=== PATIENT | male | born 1990 | race Hispanic/Latino ===

== ENCOUNTER 2017-06-28 12:14 | Emergency (ER) | payer SELFPAY ==
[2017-06-28 12:51] LABS: #Lymphocytes 1.3 thou/uL (1.20-3.40); #Monocytes 0.4 thou/uL (0.11-0.59); #Neutrophils 9.3 thou/uL (1.40-6.50); %Basophils 0.4 % (0.0-1.0); %Eosinophils 0.1 % (0.0-10.0); %Lymphocytes 11.5 % (21.0-51.0); %Monocytes 3.5 % (0.0-10.0); Hematocrit 50.2 % (42.0-52.0); Mean Platelet Volume 10.1 fL (7.4-10.4); Red Blood Cell (RBC) Count 5.25 mill/uL (4.70-6.10)
[2017-06-28 13:01] LABS: Anion Gap 11 mmol/L (-14-95); T. Carbon Dioxide 24.4 mmol/L (1.0-85.0); pH (Venous) 7.374 (7.35-7.45); vO2 Saturation-calc 90.7 % (0.0-100.0)
[2017-06-28 13:03] LABS: ALT (SGPT) 25 U/L (8-55); AST (SGOT) 16 U/L (5-34); Alkaline Phosphatase 147 U/L (40-150); Anion Gap 24 mmol/L (10-20); BUN (Urea Nitrogen) 15 mg/dL (8.9-20.6); Bilirubin, Total 0.5 mg/dL (0.2-1.2); Calc. Creatinine Clearance 0 mL/min (70-130); Calcium 10.3 mg/dL (7.8-10.44); Carbon Dioxide 19 mmol/L (22-29); Chloride 99 mmol/L (98-107); Estimated GFR-MDRD 83; Globulin 3.2 g/dL (2.4-3.5); Lipase 71 U/L (8-78)
[2017-06-28 13:07] LABS: Troponin I Less than 0.010 ng/mL (< 0.028)
[2017-06-28] MEDS ORDERED: Ondansetron HCl/PF 4 MG/2 ML Vial ONE (13:33)
== END 2017-06-28 14:18 | disposition home or self-care (01) ==
LOC: ERS 12:14
DX: E10.65 Type 1 diabetes mellitus with hyperglycemia (principal); F17.210 Nicotine dependence, cigarettes, uncomplicated
CPT/HCPCS: 36416; 80053; 82010; 82330; 82553; 82803; 83690; 84484; 85025; 96361; 96374; J2405

== ENCOUNTER 2018-01-11 22:54 | Inpatient (IN) | payer OTHER, SELFPAY ==
[2018-01-11] MEDS ORDERED: Ondansetron ODT 8 MG TAB ONE (23:18)
[2018-01-11 23:27] LABS: #Lymphocytes 0.8 thou/uL (1.20-3.40); #Monocytes 0.4 thou/uL (0.11-0.59); #Neutrophils 15.2 thou/uL (1.40-6.50); %Basophils 0.2 % (0.0-1.0); %Eosinophils 0.1 % (0.0-10.0); %Lymphocytes 4.8 % (21.0-51.0); %Monocytes 2.3 % (0.0-10.0); %Neutrophils 92.7 % (42.0-75.0); Hemoglobin 18.3 g/dL (14.0-18.0); Mean Corpuscular Hemoglobin 33.2 pg (27.0-31.0); Mean Corpuscular Volume 94.9 fl (80.0-94.0); Mean Platelet Volume 10.7 fL (7.4-10.4); Platelet Count 226 thou/uL (130-400); Red Blood Cell (RBC) Count 5.51 mill/uL (4.70-6.10); White Blood Cell (WBC) Count 16.4 thou/uL (4.8-10.8)
[2018-01-11 23:50] LABS: Magnesium 2.4 mg/dL (1.6-2.6); Phosphorus 4.9 mg/dL (2.3-4.7)
[2018-01-11 23:56] LABS: CKMB 2.7 ng/mL (0-6.6); Troponin I Less than 0.010 ng/mL (< 0.028)
[2018-01-11 23:59] LABS: ALT (SGPT) 29 U/L (8-55); AST (SGOT) 23 U/L (5-34); Albumin 5.1 g/dL (3.5-5.0); Alkaline Phosphatase 162 U/L (40-150); Anion Gap 33 mmol/L (10-20); BUN (Urea Nitrogen) 19 mg/dL (8.9-20.6); Bilirubin, Total 1.3 mg/dL (0.2-1.2); CK (CPK) 105 U/L (30-200); Calc. Creatinine Clearance 0 mL/min (70-130); Calcium 9.9 mg/dL (7.8-10.44); Carbon Dioxide 11 mmol/L (22-29); Chloride 95 mmol/L (98-107); Estimated GFR-MDRD 65; Globulin 3.2 g/dL (2.4-3.5); Glucose 463 mg/dL (70-105); Lipase 12 U/L (8-78); Potassium 5.7 mmol/L (3.5-5.1); Protein, Total 8.3 g/dL (6.0-8.3); Sodium 133 mmol/L (136-145)
[2018-01-12 00:10] LABS: Base Excess-Venous -16.4 mmol/L (0 (+/- 2.5)); Bicarbonate (HCO3v) 10.2 mmol/L (1.0-85.0); CO2 Tension (PvCO2) 27.8 mmHg (41.0-51.0); Calcium, Ionized 1.12 mmol/L (1.12-1.32); O2 Tension (PvO2) 64.1 mmHg (35.0-45.0); Potassium 6.6 mmol/L (3.4-4.7); T. Carbon Dioxide 11.1 mmol/L (1.0-85.0); pH (Venous) 7.173 (7.35-7.45); vO2 Saturation-calc 86.5 % (94-98)
[2018-01-12 01:30] LABS: Bilirubin Negative (Negative); Blood, Urine Negative (Negative); Clarity CLEAR (Clear); Glucose, Urine (Dipstick) >=1000 mg/dL (Negative); Leukocyte Negative (Negative); Nitrite Negative (Negative); Protein, Urine (Dipstick) Negative (Neg-Trace); Specific Gravity, Urine 1.027 (1.002-1.036); Urobilinogen 0.2 mg/dL (0.2-1.0)
[2018-01-12] MEDS ORDERED: NS 0.9% w/ 20 MEQ KCL 1,000 ML/1,000 ML BAG IV PRN ×2 (05:29)
[2018-01-12] MEDS ORDERED: Sodium Chloride 0.9% 1,000 ML IV PRN ×4 (05:29)
[2018-01-12] MEDS ORDERED: Dextrose 50% Abboject 50 ML SYRINGE SLOW IVP PRN ×2 (05:29→16:16)
[2018-01-12] MEDS ORDERED: Dextrose 5% in Water 1,000 ML IV PRN ×2 (05:29→16:16)
[2018-01-12] MEDS ORDERED: Dextrose 5 %-0.45 % NaCl 1,000 ML IV PRN (05:29)
[2018-01-12] MEDS ORDERED: ADD ELECTROLYTE REPLACEMENT SET TO PROFILE FS SCH (05:30)
[2018-01-12] MEDS ORDERED: Potassium Phosphate 9 MMOL in Sodium Chloride 0.9% 100 ML IVPB PRN (05:31)
[2018-01-12] MEDS ORDERED: Potassium Chloride 20 MEQ TAB PO PRN (05:31)
[2018-01-12] MEDS ORDERED: CCU ELECTROLYTE REPLACEMENT PROTOCOL FS PRN (05:31)
[2018-01-12] MEDS ORDERED: Magnesium Oxide 400 MG TAB PO PRN ×2 (05:31)
[2018-01-12] MEDS ORDERED: Potassium Phosphate 12 MMOL in Sodium Chloride 0.9% 250 ML 250 ML IV PRN (05:31)
[2018-01-12] MEDS ORDERED: Potassium Chloride 40 MEQ in Premix Bag 1 BAG IVPB PRN (05:31)
[2018-01-12] MEDS ORDERED: Potassium Phosphate 15 MMOL in Sodium Chloride 0.9% 250 ML 250 ML IV PRN (05:31)
[2018-01-12] MEDS ORDERED: Potassium Chloride 40 MEQ in Sodium Chloride 0.9% 250 ML 250 ML IVPB PRN (05:31)
[2018-01-12] MEDS ORDERED: Magnesium 2 GM/NS 0.9% 100 ML 2 GM in Premix Bag 1 BAG IVPB PRN (05:31)
[2018-01-12] MEDS ORDERED: Ondansetron HCl/PF 4 MG/2 ML Vial IVP PRN (06:04)
[2018-01-12] MEDS ORDERED: HYDROcodone/Acetaminophen 5/325 mg Tablet PO PRN (06:04)
[2018-01-12] MEDS ORDERED: Milk Of Magnesia 30 ML UDCUP PO PRN (06:04)
[2018-01-12] MEDS ORDERED: Zolpidem Tartrate 5 MG TAB PO PRN (06:04)
[2018-01-12] MEDS ORDERED: Senokot 8.6 MG TAB PO PRN (06:04)
[2018-01-12] MEDS ORDERED: Acetaminophen 325 MG TAB PO PRN (06:04)
[2018-01-12] MEDS ORDERED: Ondansetron ODT 4 MG TAB PO PRN (06:04)
[2018-01-12] MEDS ORDERED: Loperamide HCl 2 MG CAP PO PRN (06:04)
[2018-01-12] MEDS ORDERED: Mag-Al 1200 mg/1200 mg/30 ML UDCUP PO PRN (06:04)
[2018-01-12 06:11] VITALS: BMI 22.4
[2018-01-12 06:48] LABS: Calcium 8.2 mg/dL (7.8-10.44); Carbon Dioxide 8 mmol/L (22-29)
[2018-01-12 06:52] LABS: Anion Gap 25 mmol/L (10-20); Calc. Creatinine Clearance 84 mL/min (70-130); Chloride 110 mmol/L (98-107); Estimated GFR-MDRD 74; Potassium 4.8 mmol/L (3.5-5.1); Sodium 138 mmol/L (136-145)
[2018-01-12 06:58] LABS: Glucose 215 mg/dL (70-105)
[2018-01-12 07:03] LABS: BUN (Urea Nitrogen) 19 mg/dL (8.9-20.6)
--- NOTE | 2018-01-12 07:07 | HP ---
PRIMARY CARE PHYSICIAN: [facility] call admission. REASON FOR ADMISSION: Diabetes ketoacidosis. HISTORY OF PRESENT ILLNESS: A 27-year-old male who has type 1 diabetes on insulin, who was not taking insulin consistently who presented to emergency room with nausea, vomiting, generalized ab dominal pain, shortness of breath. All symptoms started about 2 hours at home before admission. The patient was trying to take his insulin yesterday, but it was not helping. He was gradually gotten w orse overnight and he has to come to the ER. In the emergency room, routine evaluation showed diabet ic ketoacidosis. The patient was admitted to [facility] for DKA treatment. Patient denies any fever or chills. He denies any cough. He denies any UTI symptoms. He denies any diarrhea, constipation, melena, hematochezia. PAST MEDICAL HISTORY: Diabetes type 1 insulin-dependent, history of polysubstance abuse, medication noncompliance. PAST SURGICAL HISTORY: Cataract surgery, laser treatment in both eyes. PAST PSYCHIATRIC HISTORY: Reviewed and negative. SOCIAL HISTORY: The patient drinks alcohol socially. He has history of cocaine and marijuana abuse. He smokes cigarettes. FAMILY HISTORY: No strong family history of premature coronary artery disease, stroke or cancer. Di abetes runs among several family members. His brother diagnosed with Prader-Willi syndrome. CURRENT HOME MEDICATIONS: Insulin 70/30 40 units subcu in the morning and variable dose during night time. REVIEW OF SYSTEMS: The following complete review of systems was negative, unless otherwise mentioned in the HPI or below: Constitutional: Weight loss or gain, ability to conduct usual activities. Skin: Rash, itching. Eyes: Double vision, pain. ENT/Mouth: Nose bleeding, neck stiffness, pain, tenderness. Cardiovascular: Palpitations, dyspnea on exertion, orthopnea. Respiratory: Shortness of breath, wheezing, cough, hemoptysis, fever or night sweats. Gastrointestinal: Poor appetite, abdominal pain, heartburn, nausea, vomiting, constipation, or diarr hea. Genitourinary: Urgency, frequency, dysuria, nocturia. Musculoskeletal: Pain, swelling. Neurologic/Psychiatric: Anxiety, depression. Allergy/Immunologic: Skin rash, bleeding tendency. Please see my HPI for pertinent positive and negative. All other review of systems reviewed and nega tive except as mentioned in the HPI. ALLERGIES: PENICILLIN. EMERGENCY ROOM COURSE: Patient was treated with insulin drip. The patient was given 3 liter IV flui d, morphine 4 mg, Bentyl 20 mg, Zofran 8 mg. PHYSICAL EXAMINATION: VITAL SIGNS: On arrival, blood pressure 147/83, pulse 82, respiratory rate 18, temperature 97.6, sat uration 95% on room air, weight 65.3 kilograms. GENERAL: The patient is currently alert, awake, no obvious acute distress. HEENT: Head: Normocephalic, atraumatic. Eyes: Pupils round, reactive to light. Extraocular muscl e intact. ENT: Oropharynx within normal limits. Dry mucous membrane, no oral lesion, no pharyngeal erythema, no exudate. NECK: Supple, no JVD, no thyromegaly, no carotid bruit, no jugular venous distention. LUNGS: Clear to auscultation without any rhonchi or rales. CARDIAC: S1, S2 regular. No murmur, no gallop, no rub. ABDOMEN: The patient does have diffuse, vague discomfort on deep palpation, but no peritoneal sign, no Akins sign, no suprapubic discomfort, no mass. BACK: Unremarkable, no CVA tenderness. EXTREMITIES: Upper extremity, passive movement of all joints are normal. Lower extremity, no edema. Good peripheral pulsation. SKIN: No skin rash. HEMATOLOGICAL: No lymphadenopathy. PSYCHIATRIC: Normal affect. NEUROLOGIC: Nonfocal examination. The patient moves all 4 limbs. Speech normal. SIGNIFICANT LABORATORY DATA AND IMAGING: EKG showing normal sinus rhythm within normal limits. Ches t x-ray based on my review, no acute cardiopulmonary process. CBC: WBC 16.4, hemoglobin 18.3, plate let 226. VBG: pH 7.17, CO2 27.8, O2 64.1, bicarbonate 10.2. BMP: Sodium 133, potassium 5.7, chlor home 95, carbon dioxide 11, anion gap 33, BUN 19, creatinine 1.32, glucose 463, calcium 9.9. LFT: T 23, ALT 29, alkaline phosphatase is 162, albumin is 5.1. CK 105. CK-MB 2.7, troponin I less than 0.010. Lipase 12. Phosphorus 4.9, magnesium 2.4. Urinalysis showing glucosuria, ketonuria. Serum ketones 9.19. ASSESSMENT AND PLAN: 1. Diabetes ketoacidosis, type 1. 2. Acute kidney injury. 3. Hyperkalemia and hyperglycemia. 4. Hyponatremia due to pseudohyponatremia. 5. Leukocytosis. 6. Hemoconcentration. PLAN: This patient is mainly admitted for diabetic ketoacidosis. We will manage him as a DKA protoc ol treatment while in hospital. We will replace electrolytes accordingly. We will manage insulin dr ip in the IMCU. Once the DKA resolves, then we will start his home dose of insulin therapy and adjus t insulin requirement. Deep venous thrombosis prophylaxis. Lovenox 30 mg subcutaneously daily. Gastrointestinal prophylaxis, Pepcid 20 mg IV daily. CODE STATUS: The patient is FULL CODE. Patient does not have any surrogate decision maker. Disposition plan based on clinical course. The patient will need hospitalization for at least 2-3 da ys.
[2018-01-12] MEDS: D5 1/2 NS w/20 mEq KCL 1,000 ML IV PRN ×2 (07:59→12:13)
[2018-01-12] MEDS ORDERED: Famotidine/PF 20 mg/2ml Vial SLOW IVP SCH (09:00)
[2018-01-12] MEDS ORDERED: Enoxaparin Sodium 30 MG/0.3 ML SYRINGE SC SCH (09:00)
[2018-01-12 10:03] LABS: Anion Gap 17 mmol/L (10-20); BUN (Urea Nitrogen) 16 mg/dL (8.9-20.6); Calc. Creatinine Clearance 103 mL/min (70-130); Calcium 7.9 mg/dL (7.8-10.44); Carbon Dioxide 13 mmol/L (22-29); Chloride 106 mmol/L (98-107); Estimated GFR-MDRD Greater than 90; Glucose 205 mg/dL (70-105); Potassium 4.9 mmol/L (3.5-5.1); Sodium 131 mmol/L (136-145)
--- NOTE | 2018-01-12 10:30 | RAD ---
PORTABLE CHEST: Date: 01/12/18 PROVIDED CLINICAL HISTORY: Nausea and vomiting. FINDINGS: Comparison with 03/16/16. Cardiac and mediastinal silhouette is within normal limits. Lungs appear clear. No pleural fluid or p neumothorax apparent. No evidence for pneumoperitoneum. IMPRESSION: No evidence for an acute cardiopulmonary process. POS: [facility]
[2018-01-12 15:36] LABS: Anion Gap 10 mmol/L (10-20); BUN (Urea Nitrogen) 11 mg/dL (8.9-20.6); Calc. Creatinine Clearance 100 mL/min (70-130); Calcium 8.2 mg/dL (7.8-10.44); Carbon Dioxide 18 mmol/L (22-29); Chloride 109 mmol/L (98-107); Estimated GFR-MDRD Greater than 90; Glucose 158 mg/dL (70-105); Potassium 4.1 mmol/L (3.5-5.1); Sodium 133 mmol/L (136-145)
[2018-01-12] MEDS ORDERED: Insulin NPH/Reg Insulin Hm 300 UNITS/3 ML VIAL SC SCH ×2 (16:15→21:00)
[2018-01-12] MEDS ORDERED: HumaLOG 300 UNITS/3 ML VIAL SC PRN (16:16)
--- NOTE | 2018-01-12 20:20 | PDOC.EVN ---
Event Note - Event Note Event Note: pt seen. Gap has closed. will discontinue insulin drip and start him on his home dose. will continue to monitor.
[2018-01-12] MEDS: Famotidine 20 MG TAB PO SCH (20:52)
[2018-01-12 22:23] LABS: Anion Gap 11 mmol/L (10-20); BUN (Urea Nitrogen) 13 mg/dL (8.9-20.6); Calc. Creatinine Clearance 85 mL/min (70-130); Calcium 8.4 mg/dL (7.8-10.44); Carbon Dioxide 18 mmol/L (22-29); Chloride 107 mmol/L (98-107); Estimated GFR-MDRD 75; Glucose 215 mg/dL (70-105); Potassium 3.9 mmol/L (3.5-5.1); Sodium 132 mmol/L (136-145)
[2018-01-13 03:54] VITALS: TEMP 98
[2018-01-13 04:40] LABS: Anion Gap 13 mmol/L (10-20); BUN (Urea Nitrogen) 10 mg/dL (8.9-20.6); Calc. Creatinine Clearance 88 mL/min (70-130); Calcium 8.8 mg/dL (7.8-10.44); Carbon Dioxide 24 mmol/L (22-29); Chloride 105 mmol/L (98-107); Estimated GFR-MDRD 78; Glucose 146 mg/dL (70-105); Magnesium 1.9 mg/dL (1.6-2.6); Potassium 3.6 mmol/L (3.5-5.1); Sodium 138 mmol/L (136-145)
[2018-01-13 07:30] VITALS: BP 116/62
[2018-01-13] MEDS: Famotidine 20 MG TAB PO SCH (08:02)
[2018-01-13] MEDS ORDERED: Insulin NPH/Reg Insulin Hm 300 UNITS/3 ML VIAL SC SCH (09:00)
[2018-01-13] MEDS ORDERED: Enoxaparin Sodium 40 MG/0.4 ML SYRINGE SC SCH (09:00)
--- NOTE | 2018-01-13 10:27 | PDOC.PN ---
- Subjective Encounter Start Date: 01/13/18 Encounter Start Time: 08:10 Subjective: feels good, eating breakfast -: is amb in room - Objective Resuscitation Status: Resuscitation Status FULL:Full Resuscitation MAR Reviewed: Yes Vital Signs & Weight: Vital Signs (12 hours) Temp Pulse Resp BP Pulse Ox 01/13/18 07:29 98.0 F 53 L 18 116/62 100 01/13/18 07:03 98.0 F 53 L 17 100 01/13/18 03:53 98.0 F 53 L 17 106/54 L 100 01/12/18 23:46 98.6 F 60 18 117/58 L 99 Weight Weight 138 lb 6.4 oz I&O: 01/12/18 01/13/18 01/14/18 06:59 06:59 06:59 Intake Total 1200 5208.7 360 Output Total 800 3950 Balance 400 1258.7 360 Result Diagrams: 01/11/18 23:10 01/13/18 03:21 Additional Labs: Accuchecks 01/13/18 01/13/18 01/13/18 05:47 01:34 00:18 POC Glucose 143 H 130 H 69 L 01/12/18 01/12/18 01/12/18 19:48 17:11 16:01 POC Glucose 307 H 104 131 H 01/12/18 01/12/18 01/12/18 15:07 14:03 13:02 POC Glucose 147 H 164 H 213 H 01/12/18 01/12/18 12:06 11:10 POC Glucose 248 H 175 H Phys Exam - Physical Examination HEENT: PERRLA, moist MMs Neck: no JVD, supple Respiratory: no wheezing, no rales Cardiovascular: RRR, no significant murmur Gastrointestinal: soft, non-tender, positive bowel sounds Musculoskeletal: no edema, pulses present Neurological: non-focal, moves all 4 limbs Psychiatric: normal affect, A&O x 3 Dx/Plan (1) DKA, type 1 Status: Resolved Qualifiers: Diabetes mellitus complication detail: without coma Qualified Code(s): E10.10 - Type 1 diabetes mellitus with ketoacidosis without coma (2) DM type 1 (diabetes mellitus, type 1) Status: Acute Qualifiers: Diabetes mellitus complication status: with unspecified complications Qualified Code(s): E10.8 - Type 1 diabetes mellitus with unspecified complications - Plan hemostable -: says he get insulin over the counter and has no problem buying them -: dc pt home -: 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
--- NOTE | 2018-01-13 21:37 | DIS ---
DATE OF ADMISSION: 01/12/2018. DATE OF DISCHARGE: 01/14/2108. DISCHARGE DISPOSITION: To home. PRIMARY DISCHARGE DIAGNOSES: Diabetic ketoacidosis with history of type 1 diabetes mellitus. PROCEDURES DONE DURING HOSPITALIZATION: Chest x-ray done showed no acute cardiopulmonary abnormaliti es. Had a white count of 16 with H&H of 18 and 52 on the day of admission. Initial venous blood gas showed a pH of 7.17. Discharge fingerstick glucoses between 69 and 143. Initial serum bicarbonate on admission was 11 with a serum glucose of 463. Beta hydroxybutyrate levels were 9.1. DISCHARGE MEDICATIONS: The patient to continue his NPH insulin at 20 units subcu twice daily. ALLERGIES: To PENICILLIN. DISCHARGE PLAN: The patient has been advised to check fingerstick glucose twice daily, record for a period of 10 days to follow up with his primary care physician in 1 week. BRIEF COURSE DURING HOSPITALIZATION: The patient initially got admitted on the with complaints of nausea, vomiting, and generalized abdominal pain and shortness of breath. He was apparently nonco mpliant with his insulin regimen. The patient was found to be in DKA and was admitted to [facility] on DKA protocol. The patient's gap is closed completely. He is tolerating oral solid diet. He is ambulat ing well. He is wanting to go home now. The patient has been counseled with regard to medication co mpliance and dietary compliance. The patient states he can get his insulin over the counter and does not need any prescriptions. He also mentions that he can afford to buy his insulin with no assistan ce needed. Please see a [id number] documentation for the day of discharge on [facility].
== END 2018-01-13 09:52 | disposition home or self-care (01) | DRG 638 ==
LOC: ERS 22:54 → IMCU/EMU 01-12 05:15
PROVIDERS: ADMIT Internal Medicine; ATTEND Internal Medicine
DX: E10.10 Type 1 diabetes mellitus with ketoacidosis without coma (principal); N17.9 Acute kidney failure, unspecified; E87.1 Hypo-osmolality and hyponatremia; Z91.14 Patient's other noncompliance with medication regimen; Z79.4 Long term (current) use of insulin; F17.210 Nicotine dependence, cigarettes, uncomplicated; E87.5 Hyperkalemia
CPT/HCPCS: 36415; 36416; 71045; 80048; 80053; 81003; 82010; 82330; 82435; 82550; 82553; 82803; 83690; 83735; 84100; 84132; 84295; 84484; 85014; 85025; 93005; 96361; 96365; 96372; 96374; J1650; J1815; J2270; J7050; S0028

== ENCOUNTER 2018-12-19 13:50 | Emergency (ER) | payer SELFPAY ==
[2018-12-19] MEDS ORDERED: Dexamethasone 4 MG TAB ONE (14:08)
== END 2018-12-19 14:20 | disposition home or self-care (01) ==
LOC: ERS 13:50
DX: J02.9 Acute pharyngitis, unspecified (principal); E10.9 Type 1 diabetes mellitus without complications; F17.210 Nicotine dependence, cigarettes, uncomplicated
CPT/HCPCS: 87081; 87430; 99283; J8540

== ENCOUNTER 2018-12-22 00:10 | Observation (INO) | payer SELFPAY ==
[2018-12-22] MEDS ORDERED: Dexamethasone 4 mg/ml Vial ONE (01:08)
[2018-12-22] MEDS ORDERED: Ketorolac Tromethamine 30 MG/ML VIAL ONE (01:08)
[2018-12-22 01:50] LABS: ALT (SGPT) 13 U/L (8-55); AST (SGOT) 12 U/L (5-34); Alkaline Phosphatase 133 U/L (40-150); Anion Gap 14 mmol/L (10-20); BUN (Urea Nitrogen) 12 mg/dL (8.9-20.6); Bilirubin, Total 0.3 mg/dL (0.2-1.2); Calc. Creatinine Clearance 0 mL/min (70-130); Calcium 9.4 mg/dL (7.8-10.44); Carbon Dioxide 28 mmol/L (22-29); Chloride 97 mmol/L (98-107); Estimated GFR-MDRD 90; Globulin 2.9 g/dL (2.4-3.5); Glucose 350 mg/dL (70-105); Potassium 3.8 mmol/L (3.5-5.1); Protein, Total 6.9 g/dL (6.0-8.3); Sodium 135 mmol/L (136-145)
[2018-12-22 02:02] LABS: Band 19 % (5-11); Hemoglobin 15.3 g/dL (14.0-18.0); Lymphocytes 19 % (21-51); MDiff Complete? YES; Mean Corpuscular Hemoglobin 32.7 pg (27.0-31.0); Mean Corpuscular Volume 93.5 fL (78.0-98.0); Monocytes 5 % (0-10); Neutrophil 57 % (42-75); Platelet Count 230 thou/uL (130-400); RBC Distribution Width 11.5 % (11.5-14.5); Red Blood Cell (RBC) Count 4.68 mill/uL (4.70-6.10)
[2018-12-22] MEDS ORDERED: cefTRIAXone\\ROCEPHIN 1 GM VIAL ONE (03:14)
[2018-12-22] MEDS ORDERED: Vancomycin HCl 1 GM in Premix Bag 1 BAG IVPB SCH (03:30)
[2018-12-22 04:20] VITALS: BMI 24.2
[2018-12-22] MEDS ORDERED: Ondansetron PF 4 MG/2 ML Vial IVP PRN (04:20)
[2018-12-22] MEDS ORDERED: HYDROcodone/Acetaminophen 5/325 mg Tablet PO PRN ×2 (04:20)
[2018-12-22] MEDS ORDERED: Ondansetron ODT 4 MG TAB SL PRN (04:20)
[2018-12-22] MEDS ORDERED: Acetaminophen 325 MG TAB PO PRN ×2 (04:20→10:50)
[2018-12-22] MEDS ORDERED: Lactated Ringer's 1,000 ML IV SCH (04:30)
[2018-12-22] MEDS: Morphine 4 MG/ML VIAL SLOW IVP PRN ×2 (06:24→10:40)
[2018-12-22] MEDS ORDERED: Lidocaine 1% (PF) 30 ML VIAL ONE (10:09)
[2018-12-22] MEDS ORDERED: Lidocaine 1% w/Epinephrine 1:100K 20 ML VIAL FS SCH (10:30)
[2018-12-22] MEDS ORDERED: Dextrose 50% Abboject 50 ML SYRINGE SLOW IVP PRN (10:50)
[2018-12-22] MEDS ORDERED: Dextrose 5% in Water 1,000 ML IV PRN (10:50)
[2018-12-22] MEDS ORDERED: Guaifenesin DM 100-10/5 ML UDCUP PO PRN (10:50)
[2018-12-22] MEDS ORDERED: Morphine 4 MG/ML VIAL SLOW IVP PRN (10:57)
--- NOTE | 2018-12-22 11:29 | CT ---
PRELIMINARY REPORT/[facility]/EMERGENCY AFTER HOURS PROCEDURE: EXAM: CT Neck With Contrast EXAM DATE/TIME: 12/22/2018 1:56 AM CLINICAL HISTORY: 28 years old, male; Throat pain; Patient HX: 28 year old male with history of sore throat over the la st few days. Was seen in er and diagnosed with pharyngitis, received zithromax RX and taking abx as p rescribed. Complains of continued pain. Patient denies any fever or chills. Decreased appetite d/t pa in. Took ibuprofen earlier this evening. Spitting during assessment, however, controlling airway. TECHNIQUE: Imaging protocol: Axial computed tomography images of the neck with intravenous contrast. COMPARISON: No relevant prior studies available. FINDINGS: Nasopharynx: Normal. Oropharynx: There is a rim enhancing 2 x 1 x 1 cm RIGHT peritonsillar abscess at the RIGHT lingual to nsils.There is also fluid tracking within the soft tissues at the base of tongue /vallecula posterior to the hyoid bone with collection measuring 1.7 x 1 x 0.9 cm consistent with abscess and ph legmonous change. Hypopharynx: Normal. Larynx: See oropharynx finding. Normal epiglottis. Retropharyngeal space: Normal. Submandibular/Parotid glands: Normal. Glands are normal in size. Thyroid: Normal. No enlarged or calcified nodules. Lymph nodes: There are large RIGHT level II lymph nodes measuring 1.6 cm presumably reactive. Trachea: Visualized trachea is unremarkable. Lungs: Normal as visualized. Vasculature: No acute findings. Bones/joints: Normal. No acute fracture. Soft tissues: Normal. IMPRESSION: 1. RIGHT peritonsillar/oropharyngeal abscesses as above. 2. There are large RIGHT level II lymph nodes measuring 1.6 cm presumably reactive. Followup as clini myesha warranted. Thank you for allowing us to participate in the care of your patient. Dictated and Authenticated by: Hernan Urbano MD 12/22/2018 2:31 AM Central Time ([place] & [place]) FINAL REPORT CT NECK WITH IV CONTRAST: I agree with the preliminary report given by Dr. Hernan Urbano of [facility]. POS: [facility]
--- NOTE | 2018-12-22 11:37 | HP ---
REASON FOR ADMISSION: Throat pain, possible peritonsillar abscess on the right. HISTORY OF PRESENTING ILLNESS: The patient gives history of having throat pain, which started on Saturday. He had come to emergency room and was prescribed Zithromax, total of 6 pills, and was also given dexamethasone 10 mg p.o. x1 in the ER on the . The patient took nearly three pills of Zithromax, but his throat pain was not resolving. In fact, it got worse and he had trouble swallowing. He started to have cold sweats with right facial and right neck pain. Finally, he made it to the emergency room again. He has had a CT soft tissue neck with contrast done. The results of which are pending at present. This morning, he has no complaints of trouble swallowing around 10 a.m. He has no complaints of chest pain or palpitation. His Strep swab culture is negative, which was taken on the . PAST MEDICAL AND SURGICAL HISTORY: Diabetes mellitus, type 1; diabetic retinopathy with prior laser surgery; cataract surgery. CURRENT MEDICATIONS: He takes Humulin 70/30 40 units subcu in the morning and depending on his glucose levels, he will take another 10 or 15 units at night. ALLERGIES: ALLERGIC TO PENICILLIN. PERSONAL HISTORY: He smokes tobacco occasionally and uses marijuana. Social alcohol usage. He last used cocaine 8 months back. He lives with his mother and brother. FAMILY HISTORY: Mother has severe osteoarthritis. Father is healthy. CODE STATUS: Full. Power of head orthopedic team physician is his sister, Ms. Tracy. REVIEW OF SYSTEMS: CONSTITUTIONAL: Negative for weight loss or gain, ability to conduct usual activities. SKIN: Negative for rash, itching. EYES: Negative for double vision, pain. ENT/MOUTH: Negative for nose bleeding, neck stiffness, pain, tenderness. CARDIOVASCULAR: Negative for palpitations, dyspnea on exertion, orthopnea. RESPIRATORY: Negative for shortness of breath, wheezing, cough, hemoptysis, fever or night sweats. GASTROINTESTINAL: Negative for poor appetite, abdominal pain, heartburn, nausea , vomiting, constipation, or diarrhea. GENITOURINARY: Negative for urgency, frequency, dysuria, nocturia. MUSCULOSKELETAL: Negative for pain, swelling. NEUROLOGIC/PSYCHIATRIC: Negative for anxiety, depression. ALLERGY/IMMUNOLOGIC: Negative for skin rash, bleeding tendency. PHYSICAL EXAMINATION: GENERAL: The patient is a 28-year-old male, who is currently in mild pain in the right side of his throat. VITAL SIGNS: Blood pressure 140/96, pulse 90 per minute, respiratory rate 16 per minute, temperature 98.5 degrees Fahrenheit, saturating 96% on room air. NECK: There is right submandibular lymphadenopathy and there is jugulodigastric node palpable on the right with tenderness. HEENT: Oral cavity, the patient is unable to open his mouth wide. Posterior pharynx cannot be examined due to excruciating pain and with suspected diagnosis of peritonsillar abscess, no attempts were made to depress his tongue to see forcefully. CARDIOVASCULAR: S1 and S2 heard, regular rhythm. RESPIRATORY: Air entry 1+ bilateral. No rales or rhonchi. ABDOMEN: Soft. Bowel sounds heard. No tenderness, rigidity, or guarding. EXTREMITIES: No peripheral edema or calf tenderness. VASCULAR SYSTEM: Peripheral pulses 2+ bilateral. No ischemic ulcerations or gangrene. CENTRAL NERVOUS SYSTEM: No gross focal deficits noted. The patient is alert, awake, and oriented well. PSYCHIATRIC: The patient's mood is euthymic. No hallucinations or delusions. LABORATORY DATA: White count of 14, hemoglobin and hematocrit of 15 and 43, platelet count is 230, with 57% neutrophils, 19% bands. Electrolytes stable. BUN 12, creatinine 0.9. Serum glucose was 350 on arrival, repeat fingerstick was 249. Liver enzymes within normal limits. Albumin is 4.0. Group A Strep screen done in the ER is negative. Soft-tissue CT neck, results are pending at present. CLINICAL IMPRESSION AND PLAN: The patient will be under observation on medical floor for suspected right peritonsillar abscess. Official CT scan is pending. Dr. Thuan Tabares, ENT surgeon has already been consulted from ER. He is kept n.p.o. for possible procedure this morning. He has received a dose of vancomycin in view of his allergy to penicillin in the ER. We will continue him on clindamycin 600 mg IV q.8 hourly. Normal saline at 70 mL per hour. He will be on moderate Humalog coverage until he is able to take oral intake. Morphine p.r.n. for pain. We will continue to closely monitor him on medical floor. Job ID: [id number] [facility]
[2018-12-22] MEDS: Sodium Chloride 0.9% 1,000 ML IV SCH (12:12)
--- NOTE | 2018-12-22 12:31 | HP ---
BRIEF HISTORY: A 28-year-old gentleman with poorly-controlled diabetes, has had a 3- to 4-day history of sore throat. He has only had 1 severe episode of tonsillitis in the past. He was admitted to the emergency room. CT scan showed an intratonsillar abscess on his right tonsil with some mild extension into the right lingual tonsillar area. Otherwise, his voice has been clear. He has been feeling much better since he has received IV antibiotics, started at midnight. PAST MEDICAL HISTORY: Type 1 diabetes. PAST SURGICAL HISTORY: No history of head and neck surgery. REVIEW OF SYSTEMS: CONSTITUTIONAL: Low-grade fevers, chills, body aches and sore throat in the past 3 to 4 days. HEME: No history of bleeding disorders. CARDIOVASCULAR: No chest pain or orthopnea. PULMONARY: No cough or wheeze. PHYSICAL EXAMINATION: GENERAL: The patient is resting fairly comfortably in bed. He shows no signs of trismus. HEENT: His tongue is soft and fully mobile. Voice is clear. NECK: lymphadenopathy bilateral level 2. More tender on the right than the left. Right tonsil is red with scant exudate present. There is no associated edema. Uvula is in midline. Base of tongue is soft, nontender. PROCEDURE: A 0.5 mL of 1% lidocaine with 1:100,000 epinephrine was injected into the right anterior tonsillar pillar. Following this, 18-gauge needle was used to drain approximately 1.5 to 2 mL of purulence from this area. ASSESSMENT: Right intratonsillar/peritonsillar abscess, status post incision and drainage to the bedside. Recommend continue IV antibiotics and aggressive blood sugar control. He will follow up with us as an outpatient. Job ID: [id number]
[2018-12-22] MEDS: Clindamycin/D5W 600 MG in Premix Bag 1 BAG IVPB SCH ×2 (14:58→19:39)
[2018-12-22] MEDS ORDERED: ISOVUE-370 76%-LOCM 1 ML ONE (16:08)
[2018-12-22] MEDS: Famotidine/PF 20 mg/2ml Vial SLOW IVP SCH (19:37)
[2018-12-22] MEDS: Ibuprofen 100 MG/5 ML UDCUP PO SCH ×2 (19:37→19:53)
[2018-12-22] MEDS: HumaLOG 300 UNITS/3 ML VIAL SC PRN (20:53)
[2018-12-22] MEDS: Ketorolac Tromethamine 30 MG/ML VIAL IVP PRN (20:55)
[2018-12-23] MEDS: Ketorolac Tromethamine 30 MG/ML VIAL IVP PRN ×4 (03:13→21:31)
[2018-12-23] MEDS: Sodium Chloride 0.9% 1,000 ML IV SCH ×2 (03:15→14:08)
[2018-12-23] MEDS: Clindamycin/D5W 600 MG in Premix Bag 1 BAG IVPB SCH ×3 (05:10→20:20)
[2018-12-23 06:20] LABS: Anion Gap 26 mmol/L (10-20); BUN (Urea Nitrogen) 17 mg/dL (8.9-20.6); Calc. Creatinine Clearance 91 mL/min (70-130); Calcium 9.4 mg/dL (7.8-10.44); Carbon Dioxide 13 mmol/L (22-29); Chloride 100 mmol/L (98-107); Estimated GFR-MDRD 75; Glucose 316 mg/dL (70-105); Potassium 4.7 mmol/L (3.5-5.1); Sodium 134 mmol/L (136-145)
[2018-12-23] MEDS: HumaLOG 300 UNITS/3 ML VIAL SC PRN ×4 (06:24→22:01)
[2018-12-23 06:27] LABS: Band 7 % (5-11); Hemoglobin 14.4 g/dL (14.0-18.0); Lymphocytes 12 % (21-51); MDiff Complete? YES; Mean Corpuscular HGB CONC 32.4 g/dL (32.0-36.0); Mean Corpuscular Hemoglobin 31.2 pg (27.0-31.0); Mean Corpuscular Volume 96.1 fL (78.0-98.0); Mean Platelet Volume 10.9 fL (7.4-10.4); Monocytes 8 % (0-10); Neutrophil 73 % (42-75); Platelet Count 252 thou/uL (130-400); RBC Distribution Width 11.6 % (11.5-14.5); Red Blood Cell (RBC) Count 4.61 mill/uL (4.70-6.10)
[2018-12-23] MEDS: Famotidine/PF 20 mg/2ml Vial SLOW IVP SCH ×2 (07:35→20:20)
[2018-12-23 08:04] LABS: Hemoglobin A1c 10.4 % (4.0-6.0)
--- NOTE | 2018-12-23 09:01 | PDOC.PN ---
- Subjective Encounter Start Date: 12/23/18 Encounter Start Time: 08:58 Patient lying in bed, he reports pain better today. He wants to try and eat something. His A1c is found to be 10.4, he states he was on lantus, but could not afford it. He denies chest pain, shortness of breath or trouble swallowing. - Objective Resuscitation Status - Order Detail: 12/22/18 10:47 Resuscitation Status Routine Resuscitation Status: FULL: Full Resuscitation MAR Reviewed: Yes Vital Signs & Weight: Vital Signs (12 hours) Temp Pulse Resp BP Pulse Ox 12/23/18 08:00 97.4 F L 69 16 111/56 L 96 12/23/18 03:20 98.2 F 73 16 138/73 96 12/22/18 23:30 99.1 F 67 20 112/58 L 96 Weight Weight 150 lb 1.6 oz I&O: 12/22/18 12/23/18 12/24/18 06:59 06:59 06:59 Intake Total 1790 Output Total 2250 Balance -460 Result Diagrams: 12/23/18 04:42 12/23/18 04:42 Additional Labs: Accuchecks 12/22/18 12/22/18 20:38 16:48 POC Glucose 327 H 242 H Radiology Reviewed by me: Yes Phys Exam - Physical Examination Constitutional: NAD HEENT: moist MMs Pharnx edema and swelling noted Neck: full ROM Respiratory: no wheezing, no rales, clear to auscultation bilateral Cardiovascular: RRR, no significant murmur Gastrointestinal: soft, no distention, positive bowel sounds Musculoskeletal: no edema, pulses present Neurological: non-focal, moves all 4 limbs Psychiatric: normal affect, A&O x 3 Skin: no rash, cap refill <2 seconds Dx/Plan (1) Peritonsillar abscess Code(s): J36 - PERITONSILLAR ABSCESS Status: Acute (2) Diabetes type I Status: Acute - Plan cont current plan of care, continue antibiotics * Continue IV clinda * Slowly advance diet, start with liquids for now * Add Levemir 10units in am and continue moderate sliding scale * A1C was found to be 10.4, continue accucheks * Once patient is able to tolerate oral intake will likely transition to oral antibiotics and consider discharge with close outpatient follow up
[2018-12-23] MEDS: Insulin Glargine 10 UNITS in Pre-Filled Syringe 1 EACH SC SCH (09:37)
[2018-12-24] MEDS: Ketorolac Tromethamine 30 MG/ML VIAL IVP PRN ×2 (04:58→11:45)
[2018-12-24] MEDS: Sodium Chloride 0.9% 1,000 ML IV SCH (05:00)
[2018-12-24] MEDS: Clindamycin/D5W 600 MG in Premix Bag 1 BAG IVPB SCH (05:01)
[2018-12-24] MEDS: Insulin Glargine 10 UNITS in Pre-Filled Syringe 1 EACH SC SCH (09:44)
[2018-12-24] MEDS: Famotidine/PF 20 mg/2ml Vial SLOW IVP SCH (09:44)
[2018-12-24] MEDS: HumaLOG 300 UNITS/3 ML VIAL SC PRN (11:50)
[2018-12-24] MEDS ORDERED: Clindamycin 150 MG CAP PO SCH (12:00)
[2018-12-24 12:30] LABS: Hemoglobin 15.2 g/dL (14.0-18.0); Mean Corpuscular HGB CONC 34.2 g/dL (32.0-36.0); Mean Corpuscular Hemoglobin 32.3 pg (27.0-31.0); Mean Corpuscular Volume 94.6 fL (78.0-98.0); Mean Platelet Volume 10.3 fL (7.4-10.4); Platelet Count 263 thou/uL (130-400); RBC Distribution Width 11.5 % (11.5-14.5); Red Blood Cell (RBC) Count 4.71 mill/uL (4.70-6.10); White Blood Cell (WBC) Count 17.3 thou/uL (4.8-10.8)
[2018-12-24 12:47] LABS: Anion Gap 24 mmol/L (10-20); BUN (Urea Nitrogen) 12 mg/dL (8.9-20.6); Calc. Creatinine Clearance 85 mL/min (70-130); Calcium 9.4 mg/dL (7.8-10.44); Carbon Dioxide 15 mmol/L (22-29); Chloride 98 mmol/L (98-107); Estimated GFR-MDRD 69; Glucose 414 mg/dL (70-105); Potassium 4.3 mmol/L (3.5-5.1); Sodium 133 mmol/L (136-145)
[2018-12-24 12:50] LABS: Band 7 % (5-11); Lymphocytes 8 % (21-51); MDiff Complete? YES; Metamyelocyte 1 % (0-0); Monocytes 4 % (0-10); Neutrophil 79 % (42-75); RBC Morphology Normal; Reactive Lymphocytes 1 % (0-10)
[2018-12-24] MEDS ORDERED: HumaLOG 300 UNITS/3 ML VIAL SC PRN (13:17)
[2018-12-24 16:12] VITALS: BP 138/78; TEMP 98.8
== END 2018-12-24 16:47 | disposition home or self-care (01) ==
LOC: ERS 00:10 → 2SW 03:25
PROVIDERS: ADMIT Hospitalist; ATTEND Hospitalist
DX: J36 Peritonsillar abscess (principal); E10.9 Type 1 diabetes mellitus without complications; F12.10 Cannabis abuse, uncomplicated; F17.210 Nicotine dependence, cigarettes, uncomplicated; Z88.0 Allergy status to penicillin; Z98.890 Other specified postprocedural states
CPT/HCPCS: 36415; 36416; 42999; 70491; 80048; 80053; 83036; 83605; 85025; 87081; 87430; 96361; 96365; 96366; 96367; 96372; 96375; 96376; G0378; J0696; J1100; J1825; J1885; J2001; J2270; J3370; J3490; Q9966; S0028

== ENCOUNTER 2019-09-19 13:23 | Inpatient (IN) | payer SELFPAY ==
[2019-09-19] MEDS ORDERED: Ondansetron ODT 4 MG TAB ONE (13:28)
[2019-09-19 15:29] LABS: #Lymphocytes 0.9 thou/uL (1.20-3.40); #Monocytes 0.4 thou/uL (0.11-0.59); #Neutrophils 9.7 thou/uL (1.40-6.50); %Basophils 0.3 % (0.0-1.0); %Eosinophils 0.2 % (0.0-10.0); %Lymphocytes 7.9 % (21.0-51.0); %Monocytes 3.6 % (0.0-10.0); %Neutrophils 88.1 % (42.0-75.0); Hemoglobin 17.7 g/dL (14.0-18.0); Mean Corpuscular HGB CONC 35.4 g/dL (32.0-36.0); Mean Corpuscular Hemoglobin 32.9 pg (27.0-31.0); Mean Platelet Volume 10.7 fL (7.4-10.4); Platelet Count 235 thou/uL (130-400); RBC Distribution Width 11.8 % (11.5-14.5); Red Blood Cell (RBC) Count 5.38 mill/uL (4.70-6.10)
[2019-09-19 15:52] LABS: ALT (SGPT) 26 U/L (8-55); AST (SGOT) 26 U/L (5-34); Albumin 5.2 g/dL (3.5-5.0); Alkaline Phosphatase 149 U/L (40-110); Anion Gap 23 mmol/L (10-20); BUN (Urea Nitrogen) 16 mg/dL (8.9-20.6); Bilirubin, Total 0.9 mg/dL (0.2-1.2); Calc. Creatinine Clearance 0 mL/min (70-130); Calcium 10.1 mg/dL (7.8-10.44); Carbon Dioxide 23 mmol/L (22-29); Chloride 95 mmol/L (98-107); Estimated GFR-MDRD 78; Globulin 2.6 g/dL (2.4-3.5); Glucose 275 mg/dL (70-105); Lipase 21 U/L (8-78); Potassium 5.2 mmol/L (3.5-5.1); Protein, Total 7.8 g/dL (6.0-8.3); Sodium 136 mmol/L (136-145)
--- NOTE | 2019-09-19 16:59 | RAD ---
EXAM: Chest one view: HISTORY: Hyperglycemia COMPARISON: 03/14/2018 FINDINGS: Heart size: Within normal limits. Lungs: Clear of acute process. No evidence for confluent pneumonia, pleural effusion, acute edema, or pneumothorax, or other signifi cant acute process. IMPRESSION: No significant acute intrathoracic disease. Stable exam.
[2019-09-19 17:09] LABS: Base Excess-Venous -2.9 mmol/L (-2.0 to 3.0); CO2 Tension (PvCO2) 53.4 mmHg (40.0-50.0); Calcium, Ionized 1.15 mmol/L (See Comments:); Chloride 99 mmol/L (98-107); Hemoglobin - Calc 17.3 g/dL (14.0-18.0); Potassium 4.2 mmol/L (3.5-5.1); Sodium 135 mmol/L (138-145); T. Carbon Dioxide 26.6 mmol/L (22.0-28.0); vO2 Saturation-calc 54.9 % (60.0-85.0)
[2019-09-19 17:13] LABS: Bilirubin Negative (Negative); Blood, Urine Negative (Negative); Clarity Clear (Clear); Glucose, Urine (Dipstick) Greater than 1000 mg/dL (Negative); Leukocyte Negative Leu/uL (Negative); Nitrite Negative (Negative); Protein, Urine (Dipstick) 20 mg/dL (Neg-Trace); Urobilinogen Normal mg/dL (Less than 2)
[2019-09-19] MEDS ORDERED: HUMULIN R 100 UNITS in Sodium Chloride 0.9% 100 ML IVPB SCH ×2 (17:15→21:06)
[2019-09-19] MEDS ORDERED: Dextrose 50% Abboject 50 ML SYRINGE ONE (20:11)
[2019-09-19 20:21] LABS: Potassium 3.8 mmol/L (3.5-5.1)
[2019-09-19] MEDS ORDERED: Famotidine/PF 20 mg/2ml Vial SLOW IVP SCH (21:00)
[2019-09-19] MEDS ORDERED: Ondansetron ODT 4 MG TAB SL PRN (21:06)
[2019-09-19] MEDS ORDERED: Acetaminophen 325 MG TAB PO PRN ×2 (21:06)
[2019-09-19] MEDS ORDERED: NS 0.9% w/ 20 MEQ KCL 1,000 ML IV PRN ×2 (21:06)
[2019-09-19] MEDS ORDERED: Dextrose 5 %-0.45 % NaCl 1,000 ML IV PRN ×2 (21:06→21:07)
[2019-09-19] MEDS ORDERED: CCU Electrolyte Replacement 1 EACH IVPB ONE (21:06)
[2019-09-19] MEDS ORDERED: Sodium Chloride 0.9% 1,000 ML IV PRN ×8 (21:06→21:07)
[2019-09-19] MEDS ORDERED: Ondansetron ODT 4 MG TAB PO PRN (21:06)
[2019-09-19] MEDS ORDERED: Ondansetron PF 4 MG/2 ML Vial IVP PRN ×2 (21:06)
[2019-09-19] MEDS ORDERED: Dextrose 5% in Water 1,000 ML IV PRN (21:07)
[2019-09-19] MEDS ORDERED: D5 1/2 NS w/20 mEq KCL 1,000 ML IV PRN (21:07)
[2019-09-19] MEDS ORDERED: Dextrose 50% Abboject 50 ML SYRINGE SLOW IVP PRN (21:07)
[2019-09-19] MEDS ORDERED: NS 0.9% w/ 20 MEQ KCL 1,000 ML/1,000 ML BAG IV PRN ×2 (21:07)
[2019-09-19] MEDS ORDERED: Potassium Phosphate 12 MMOL in Sodium Chloride 0.9% 250 ML 250 ML IV PRN ×2 (21:08→21:12)
[2019-09-19] MEDS ORDERED: Potassium Chloride 40 MEQ in Sodium Chloride 0.9% 250 ML 250 ML IVPB PRN ×2 (21:08→21:12)
[2019-09-19] MEDS ORDERED: Magnesium 2 GM/50 ML 2 GM in Premix Bag 1 BAG IVPB PRN ×2 (21:08→21:12)
[2019-09-19] MEDS ORDERED: Potassium Phosphate 9 MMOL in Sodium Chloride 0.9% 100 ML IVPB PRN ×2 (21:08→21:12)
[2019-09-19] MEDS ORDERED: Potassium Chloride 40 MEQ in Premix Bag 1 BAG IVPB PRN ×2 (21:08→21:12)
[2019-09-19] MEDS ORDERED: PHOS-NAK 1 PKT PACK PO PRN ×4 (21:08→21:12)
[2019-09-19] MEDS ORDERED: Magnesium Oxide 400 MG TAB PO PRN ×4 (21:08→21:12)
[2019-09-19] MEDS ORDERED: CCU ELECTROLYTE REPLACEMENT PROTOCOL FS PRN ×2 (21:08→21:12)
[2019-09-19] MEDS ORDERED: Potassium Phosphate 15 MMOL in Sodium Chloride 0.9% 250 ML 250 ML IV PRN ×2 (21:08→21:12)
[2019-09-19] MEDS ORDERED: Potassium Chloride 20 MEQ TAB PO PRN ×2 (21:08→21:12)
[2019-09-19 21:12] VITALS: BMI 22.3
[2019-09-19] MEDS ORDERED: ADD ELECTROLYTE REPLACEMENT SET TO PROFILE FS SCH (21:15)
[2019-09-19] MEDS: D5 1/2 NS w/20 mEq KCL 1,000 ML IV PRN (21:24)
[2019-09-19 21:51] LABS: Anion Gap 15 mmol/L (10-20); BUN (Urea Nitrogen) 14 mg/dL (8.9-20.6); Calc. Creatinine Clearance 104 mL/min (70-130); Carbon Dioxide 28 mmol/L (22-29); Chloride 98 mmol/L (98-107); Estimated GFR-MDRD Greater than 90; Glucose 196 mg/dL (70-105); Potassium 3.7 mmol/L (3.5-5.1); Sodium 137 mmol/L (136-145)
--- NOTE | 2019-09-20 00:04 | HP ---
PRIMARY CARE PHYSICIAN: At the [facility]. CHIEF COMPLAINT: Nausea and vomiting. HISTORY OF PRESENT ILLNESS: Mr. Colbert is a pleasant 29-year-old gentleman, who has a history of diabetes mellitus type 1. He says that after breakfast, he started having problems with nausea and vomiting. He says he vomited about four times, yellow looking vomitus. He says prior to that, he admits to drinking about a 12-pack of beer. He denies any hematemesis. He denies having any symptoms such as cough or cold. No sore throat. No fevers. No chills. He thought it might be that he was hung over, so he thought the symptoms would go away. However, when his symptoms did not improve, he came to the ER for evaluation. There, he was found to have an elevated blood glucose. He also had an elevated anion gap and he is being admitted for DKA. Otherwise, the patient has no other complaints. Currently, he is feeling much better and is actually starting to ask when he can eat. REVIEW OF SYSTEMS: All systems were reviewed and are negative except for that mentioned in the history of present illness. PAST MEDICAL HISTORY: Significant for diabetes mellitus type 1. PAST SURGICAL HISTORY: He has had a cataract removed when he was 10-year-old. ALLERGIES: TO PENICILLIN. SOCIAL HISTORY: He lives at home with his mother. He smokes occasionally. He admits to smoking marijuana as well and drinks as well occasionally. FAMILY HISTORY: Significant for diabetes on both sides of his family. CURRENT MEDICATIONS: Include insulin 70/30 of 20 units in the morning and 20 in the evening. PHYSICAL EXAMINATION: GENERAL: He is alert and oriented. He appears to be in no acute distress. He is well developed and well nourished. VITAL SIGNS: The patient's blood pressure was 139/88, heart rate 96, respiratory rate of 20, temperature is 97.9. HEENT: Pupils are equal, round, and reactive. Extraocular muscles are intact. Sclerae anicteric. Throat, there is no erythema. No exudates. NECK: No adenopathy. No bruits. LUNGS: There is no wheezing, no rales, no rhonchi. CARDIOVASCULAR: He has a normal S1, S2. I did not appreciate an S3 or S4. No murmurs, clicks, or rubs. ABDOMEN: Soft. He has some mild epigastric tenderness. There is no rebound, no guarding, no organomegaly. EXTREMITIES: There is no clubbing or cyanosis. No edema. No joint effusions. SKIN AND INTEGUMENT: There are no skin changes. No rash. No skin breakdown. LABORATORY RESULTS: White blood cell count is 11, hemoglobin 17.7, hematocrit is 50, platelet count is 235. His sodium is 136, potassium 5.2, chloride is 95, CO2 is 23, BUN of 16, creatinine 1.1, glucose is 275. Urinalysis is significant for glucose, as well as ketones and beta hydroxybutyrate is 5.63. The patient had a chest x-ray, which was negative for any airspace disease. ASSESSMENT: This is a 29-year-old gentleman, who presents to the emergency room with nausea, vomiting, elevated blood glucose with elevated anion gap. He will be admitted to the [facility] for diabetic ketoacidosis and started on insulin drip, as well as IV fluids. He will likely clear the diabetic ketoacidosis fairly quickly and I suspect even before the night is over, he can be transitioned over to subcu insulin or in the morning. He will need to be counseled on diabetes management, as well as the risks involved with noncompliance with diet as well as monitoring as he says he admits that he does not use a glucometer. Hopefully, transition back to the outpatient setting. Job ID: [id number]
[2019-09-20 01:22] LABS: Anion Gap 12 mmol/L (10-20); BUN (Urea Nitrogen) 14 mg/dL (8.9-20.6); Calc. Creatinine Clearance 116 mL/min (70-130); Calcium 8.6 mg/dL (7.8-10.44); Carbon Dioxide 27 mmol/L (22-29); Chloride 101 mmol/L (98-107); Estimated GFR-MDRD Greater than 90; Glucose 165 mg/dL (70-105); Potassium 3.5 mmol/L (3.5-5.1); Sodium 136 mmol/L (136-145)
[2019-09-20] MEDS: D5 1/2 NS w/20 mEq KCL 1,000 ML IV PRN (01:54)
[2019-09-20] MEDS ORDERED: 1/2 NS w/KCL 20 mEq 1,000 ML IV SCH (02:00)
[2019-09-20] MEDS ORDERED: DC Electrolyte Protocol FS SCH (02:00)
[2019-09-20] MEDS ORDERED: Dextrose 5% in Water 1,000 ML IV PRN (02:02)
[2019-09-20] MEDS ORDERED: Insulin Regular 300 UNITS/3 ML VIAL SC PRN ×2 (02:02)
[2019-09-20] MEDS ORDERED: Dextrose 50% Abboject 50 ML SYRINGE SLOW IVP PRN (02:02)
[2019-09-20 02:25] VITALS: BP 118/69
[2019-09-20 05:17] LABS: #Basophils 0.1 thou/uL (0.0-0.2); #Eosinphils 0.1 thou/uL (0.0-0.7); #Lymphocytes 2.5 thou/uL (1.20-3.40); #Monocytes 0.7 thou/uL (0.11-0.59); #Neutrophils 4.8 thou/uL (1.40-6.50); %Basophils 0.8 % (0.0-1.0); %Eosinophils 1.6 % (0.0-10.0); %Monocytes 8.6 % (0.0-10.0); Hemoglobin 14.9 g/dL (14.0-18.0); Mean Corpuscular HGB CONC 35.3 g/dL (32.0-36.0); Mean Corpuscular Hemoglobin 33.2 pg (27.0-31.0); Mean Corpuscular Volume 94.1 fL (78.0-98.0); Mean Platelet Volume 10.4 fL (7.4-10.4); Platelet Count 194 thou/uL (130-400); RBC Distribution Width 11.7 % (11.5-14.5); Red Blood Cell (RBC) Count 4.49 mill/uL (4.70-6.10); White Blood Cell (WBC) Count 8.2 thou/uL (4.8-10.8)
[2019-09-20 05:36] LABS: Anion Gap 13 mmol/L (10-20); BUN (Urea Nitrogen) 11 mg/dL (8.9-20.6); Calc. Creatinine Clearance 112 mL/min (70-130); Calcium 8.7 mg/dL (7.8-10.44); Carbon Dioxide 27 mmol/L (22-29); Chloride 101 mmol/L (98-107); Estimated GFR-MDRD Greater than 90; Glucose 126 mg/dL (70-105); Phosphorus 3.5 mg/dL (2.3-4.7); Potassium 3.5 mmol/L (3.5-5.1); Sodium 137 mmol/L (136-145)
[2019-09-20 07:22] VITALS: TEMP 97.8
[2019-09-20] MEDS ORDERED: NPH, Human Insulin Isophane 300 UNIT/3 ML VIAL SC SCH (08:00)
[2019-09-20] MEDS ORDERED: Enoxaparin Sodium 40 MG/0.4 ML SYRINGE SC SCH (09:00)
[2019-09-20] MEDS ORDERED: Famotidine 20 MG TAB PO SCH (09:00)
[2019-09-20 10:12] LABS: Phosphorus 3.3 mg/dL (2.3-4.7)
--- NOTE | 2019-09-20 10:24 | PDOC.HOSPP ---
- Subjective Encounter Date: 09/20/19 Encounter Time: 10:22 Subjective: Mr. Colbert was seen today in follow-up of DKA. He does not have any complaints. He feels much better this morning. He does not have any nausea or vomiting. - Objective Vital Signs & Weight: Vital Signs (12 hours) Temp Pulse Resp BP Pulse Ox 09/20/19 07:22 97.8 F 09/20/19 03:24 98.3 F 09/20/19 02:00 68 20 118/69 97 09/19/19 23:15 98.3 F Weight Weight 138 lb 8 oz Most Recent Monitor Data Heart Rate from ECG 66 NIBP 122/66 NIBP BP-Mean 84 Respiration from ECG 13 SpO2 98 I&O: 09/19/19 09/20/19 09/21/19 06:59 06:59 06:59 Intake Total 1759 Output Total 300 Balance 1459 Result Diagrams: 09/20/19 05:09 09/20/19 05:09 Additional Labs: Accuchecks 09/20/19 09/20/19 09/20/19 06:16 04:03 03:00 POC Glucose 111 H 149 H 175 H 09/20/19 09/20/19 09/20/19 02:07 01:09 00:04 POC Glucose 153 H 164 H 158 H 09/19/19 09/19/19 09/19/19 23:02 22:00 20:37 POC Glucose 191 H 174 H 167 H 09/19/19 09/19/19 09/19/19 20:07 18:48 15:17 POC Glucose 56 L* 135 H 291 H 09/19/19 13:30 POC Glucose 373 H Hospitalist ROS - Medication Medications: Active Medications Generic Name Dose Route Start Last Admin Trade Name Freq PRN Reason Stop Dose Admin Enoxaparin Sodium 40 mg 09/20/19 09:00 09/20/19 09:56 Lovenox SC 40 mg 0900 KAUR Administration Famotidine 20 mg 09/20/19 09:00 09/20/19 09:57 Pepcid PO 20 mg BID KAUR Administration Potassium Chloride/Dextrose/Sod Cl 1,000 mls @ 250 mls/hr 09/19/19 21:06 01:54 D5 1/2 Ns W/20 Meq Kcl IV 1,000 mls .Q4H PRN Administration Step 4 of DKA Protocol Protocol Potassium Chloride/Sodium Chloride 1,000 mls @ 125 mls/hr 09/20/19 02:00 03:42 1/2 Ns W/Kcl 20 Meq IV 1,000 mls .Q8H KAUR Administration Insulin Human NPH 20 unit 09/20/19 08:00 09/20/19 10:01 Humulin N SC 20 unit BID-WM KAUR Administration - Exam Eye: PERRL, anicteric sclera Heart: RRR, no murmur, no gallops, no rubs, normal peripheral pulses Respiratory: CTAB, no wheezes, no rales, no ronchi, normal chest expansion, no tachypnea, normal percussion Gastrointestinal: soft, non-tender, non-distended, normal bowel sounds, no palpable masses, no hepatomegaly, no splenomegaly Extremities: no cyanosis, no clubbing, no edema Hosp A/P (1) DKA, type 1 Code(s): E10.10 - TYPE 1 DIABETES MELLITUS WITH KETOACIDOSIS WITHOUT COMA Status: Acute - Plan * DKA- resolved * Discussed compliance in detail * Stable for discharge home.
[2019-09-20] MEDS ORDERED: Prevnar 13-Val Conj/PF 0.5 ML SYRINGE IM ONE (21:00)
[2019-09-20] MEDS ORDERED: FLU VACC QS2019-20(6MOS UP)/PF 60 MCG/0.5 ML SYRINGE IM ONE (21:00)
--- NOTE | 2019-09-21 04:13 | DIS ---
DATE OF ADMISSION: 09/19/2019 DATE OF DISCHARGE: 09/20/2019 PRIMARY CARE PHYSICIAN: Selvin Gupta. DISCHARGE DISPOSITION: Home. DISCHARGE DIAGNOSES: 1. Diabetic ketoacidosis type 1. 2. Noncompliance. DISCHARGE MEDICATIONS: Humulin 70/30, 20 units in the morning, 20 in the evening and to continue his sliding scale. CODE STATUS: Full code. ALLERGIES: TO PENICILLIN. HOSPITAL COURSE: Mr. Colbert is a pleasant 29-year-old gentleman who has a history of type 1 diabetes mellitus. He has been diabetic since age of 3. He began having nausea and vomiting on the night prior to admission. He admits to drinking at least a 12 pack of beer prior to the episode. He reported to the emergency room when his symptoms did not improve. He was found to be in mild diabetic ketoacidosis with blood sugars around 300s and he was acidotic with high anion gap. He was placed in the IMCU and started on an insulin drip. He corrected relatively quickly and was able to be weaned off the insulin drip. In discussions with the patient, it was discovered that he does not use his glucometer to check his blood sugars. He cannot give me a really good reason why other than he feels that he can tell when his blood sugars are high or low and does not feel the need to actually check his sugars, which discussed this in detail. The fact that his body is not able to always tell and he really needs to check his blood sugars at least 3 times a day. He can talk with his primary care physician about potentially changing him to a glucometer that does not require sticks if this is one of the things that is a deterrent for him. We also discussed excessive alcohol intake and he will need to cut this back. He states that he plans to "not drink anymore" and we discussed the relationship with excessive alcohol use with regard to poorly-controlled diabetes mellitus. The patient is clinically stable. Tolerating an oral diet with no symptoms and is therefore able to be discharged home. Job ID: [id number]
== END 2019-09-20 11:15 | disposition home or self-care (01) | DRG 639 ==
LOC: ERS 13:23 → IMCU/EMU 21:01
PROVIDERS: ADMIT Internal Medicine; ATTEND Internal Medicine
DX: E10.10 Type 1 diabetes mellitus with ketoacidosis without coma (principal); F17.200 Nicotine dependence, unspecified, uncomplicated; Z88.0 Allergy status to penicillin; Z91.11 Patient's noncompliance with dietary regimen; Z91.19 Patient's noncompliance with other medical treatment and regimen; Z79.4 Long term (current) use of insulin
CPT/HCPCS: 36415; 36416; 71045; 80053; 81003; 82010; 82330; 82803; 83690; 84100; 85025; J1650; J1815; J3480; J3490; Q0162; S0028

== ENCOUNTER 2020-01-02 21:38 | Inpatient (IN) | payer SELFPAY ==
[2020-01-02] MEDS ORDERED: Ondansetron PF 4 MG/2 ML Vial ONE (21:43)
[2020-01-02 22:05] LABS: #Lymphocytes 1.2 thou/uL (1.20-3.40); #Monocytes 0.5 thou/uL (0.11-0.59); #Neutrophils 13.1 thou/uL (1.40-6.50); %Basophils 0.2 % (0.0-1.0); %Lymphocytes 8.1 % (21.0-51.0); %Monocytes 3.1 % (0.0-10.0); %Neutrophils 88.6 % (42.0-75.0); Hemoglobin 17.9 g/dL (14.0-18.0); Mean Corpuscular HGB CONC 34.3 g/dL (32.0-36.0); Mean Corpuscular Hemoglobin 32.9 pg (27.0-31.0); Mean Corpuscular Volume 95.8 fL (78.0-98.0); Mean Platelet Volume 11.8 fL (7.4-10.4); Platelet Count 245 thou/uL (130-400); RBC Distribution Width 11.9 % (11.5-14.5); Red Blood Cell (RBC) Count 5.44 mill/uL (4.70-6.10); White Blood Cell (WBC) Count 14.8 thou/uL (4.8-10.8)
[2020-01-02 22:22] LABS: ALT (SGPT) 23 U/L (8-55); AST (SGOT) 18 U/L (5-34); Albumin 5.4 g/dL (3.5-5.0); Alkaline Phosphatase 145 U/L (40-110); BUN (Urea Nitrogen) 27 mg/dL (8.9-20.6); Bilirubin, Total 1.5 mg/dL (0.2-1.2); Calc. Creatinine Clearance 0 mL/min (70-130); Calcium 11.1 mg/dL (7.8-10.44); Carbon Dioxide 10 mmol/L (22-29); Chloride 93 mmol/L (98-107); Estimated GFR-MDRD 48; Globulin 2.9 g/dL (2.4-3.5); Glucose 521 mg/dL (70-105); Lipase 15 U/L (8-78); Potassium 5.3 mmol/L (3.5-5.1); Protein, Total 8.3 g/dL (6.0-8.3); Sodium 135 mmol/L (136-145)
[2020-01-02] MEDS ORDERED: Insulin Regular 300 UNITS/3 ML VIAL ONE (22:33)
[2020-01-02] MEDS ORDERED: HUMULIN R 100 UNITS in Sodium Chloride 0.9% 100 ML IVPB SCH ×2 (22:45→23:45)
[2020-01-02 23:03] LABS: Bilirubin Negative (Negative); Blood, Urine Negative (Negative); Clarity Clear (Clear); Glucose, Urine (Dipstick) Greater than 1000 mg/dL (Negative); Leukocyte Negative Leu/uL (Negative); Nitrite Negative (Negative); Protein, Urine (Dipstick) Negative (Neg-Trace); Urobilinogen Normal mg/dL (Less than 2)
[2020-01-02 23:09] LABS: Anion Gap 37 mmol/L (10-20)
--- NOTE | 2020-01-02 23:21 | RAD ---
FRONTAL RADIOGRAPH CHEST: Date: 01/02/2020 COMPARISON: 09/19/2019. HISTORY: Vomiting. FINDINGS: Lungs are clear. Heart and mediastinal contours are unremarkable. IMPRESSION: No acute findings. POS: [facility]
[2020-01-02] MEDS ORDERED: CCU Electrolyte Replacement 1 EACH IVPB ONE (23:41)
[2020-01-02] MEDS ORDERED: Sodium Chloride 0.9% 1,000 ML IV PRN ×4 (23:41)
[2020-01-02] MEDS ORDERED: Dextrose 5 %-0.45 % NaCl 1,000 ML IV PRN (23:41)
[2020-01-02] MEDS ORDERED: NS 0.9% w/ 20 MEQ KCL 1,000 ML IV PRN ×2 (23:41)
[2020-01-02] MEDS ORDERED: hydrALAZINE 20 MG/ML VIAL SLOW IVP PRN (23:43)
[2020-01-02] MEDS ORDERED: Guaifenesin DM 100-10/5 ML UDCUP PO PRN (23:43)
[2020-01-02] MEDS ORDERED: Acetaminophen 325 MG TAB PO PRN (23:43)
[2020-01-02] MEDS ORDERED: HYDROcodone/Acetaminophen 5/325 mg Tablet PO PRN (23:43)
[2020-01-02] MEDS ORDERED: Ondansetron PF 4 MG/2 ML Vial IVP PRN (23:43)
[2020-01-02] MEDS ORDERED: Promethazine HCl 12.5 MG in Sodium Chloride 0.9% 50 ML IVPB PRN (23:43)
[2020-01-02] MEDS ORDERED: cloNIDine 0.1 MG TAB PO PRN (23:43)
[2020-01-02] MEDS ORDERED: Labetalol HCl 100 MG/20 ML VIAL SLOW IVP PRN (23:43)
[2020-01-02] MEDS ORDERED: Morphine 2 MG/ML SYRINGE SLOW IVP PRN (23:43)
--- NOTE | 2020-01-02 23:45 | PDOC.HHP ---
Hospitalist HPI - History of Present Illness Vomiting, malaise History of Present Illness: Patient is a 29 year old male with PMH T1DM who presents to ED for vomiting this AM. He believes he is in DKA. He takes 70/30 and reports that he has not missed doses. He reports cocaine use and also drank alcohol yesterday. This morning vomited 5-6 times. Had some epigastric pain, denies fevers, chills, SOB , diarrhea. Does not check sugars at home. In ED, B-hydroxybutyrate, glucose > 500, gap 32, given insulin bolus and gtt. WBC elevated but no obvious source of infection, Ua without infectious markers, patient admitted to [facility] for further workup and care. Hospitalist ROS - Review of Systems Constitutional: reports: sweats, weakness, malaise. denies: fever, chills, other Eyes: denies: pain, vision change, conjunctivae inflammation, eyelid inflammation, redness, other ENT: denies: ear pain, ear discharge, nose pain, nose discharge, nose congestion , mouth pain, mouth swelling, throat pain, throat swelling, other Respiratory: denies: cough, dry, shortness of breath, hemoptysis, SOB with excertion, pleuritic pain, sputum, wheezing, other Cardiovascular: denies: chest pain, palpitations, orthopnea, paroxysmal noc. dyspnea, edema, light headedness, other Gastrointestinal: reports: nausea, vomiting, abdominal pain. denies: diarrhea, constipation, melena, hematochezia, other Genitourinary: denies: dysuria, frequency, incontinence, hematuria, retention, other Musculoskeletal: denies: neck pain, shoulder pain, arm pain, back pain, hand pain, leg pain, foot pain, other Skin: denies: rash, lesions, girish, bruising, other Neurological: denies: weakness, numbness, incoordination, change in speech, confusion, seizures, other All other systems reviewed; all pertinent +/- noted in HPI/Subj - Medication Medications: insulin 70/30, see mar/ed notes for doses, reviewed Hospitalist History - Past Medical History Other Medical History: T1DM - Past Surgical History Other Surgical History: cataract surgery - Family History Family History: reports: no pertinent history - Social History Smoking Status: Current some day smoker Drugs: reports: cocaine, marijuana - Exam General Appearance: NAD, awake alert Eye: PERRL, anicteric sclera ENT: normocephalic atraumatic, no oropharyngeal lesions, moist mucosa Neck: supple, symmetric, no JVD, no thyromegaly, no lymphadenopathy, no carotid bruit Heart: RRR, no murmur, no gallops, no rubs, normal peripheral pulses Respiratory: CTAB, no wheezes, no rales, no ronchi, normal chest expansion, no tachypnea, normal percussion Gastrointestinal: soft, non-tender, non-distended, normal bowel sounds, no palpable masses, no hepatomegaly, no splenomegaly, no bruit Extremities: no cyanosis, no clubbing, no edema Skin: normal turgor, no lesions, no rashes Neurological: cranial nerve grossly intact, normal sensation to touch, no weakness, no focal deficits, no new deficit Musculoskeletal: normal tone, normal strength, no muscle wasting Psychiatric: normal affect, normal behavior, A&O x 3 Hospitalist Results - Labs Result Diagrams: 01/02/20 21:47 01/02/20 23:52 Lab results: WBC 14.8 thou/uL (4.8-10.8) H 01/02/20 21:47 Hgb 17.9 g/dL (14.0-18.0) 01/02/20 21:47 Hct 52.1 % (42.0-52.0) H 01/02/20 21:47 MCV 95.8 fL (78.0-98.0) 01/02/20 21:47 Plt Count 245 thou/uL (130-400) 01/02/20 21:47 Neutrophils % 88.6 % (42.0-75.0) H 01/02/20 21:47 Sodium 135 mmol/L (136-145) L 01/02/20 21:47 Potassium 5.3 mmol/L (3.5-5.1) H 01/02/20 21:47 Chloride 93 mmol/L (98-107) L 01/02/20 21:47 Carbon Dioxide 10 mmol/L (22-29) L 01/02/20 21:47 BUN 27 mg/dL (8.9-20.6) H 01/02/20 21:47 Creatinine 1.69 mg/dL (0.7-1.3) H 01/02/20 21:47 Glucose 521 mg/dL (70-105) H 01/02/20 21:47 Calcium 11.1 mg/dL (7.8-10.44) H 01/02/20 21:47 Total Bilirubin 1.5 mg/dL (0.2-1.2) H 01/02/20 21:47 AST 18 U/L (5-34) 01/02/20 21:47 ALT 23 U/L (8-55) 01/02/20 21:47 Alkaline Phosphatase 145 U/L (40-110) H 01/02/20 21:47 Troponin I 0.010 ng/mL (< 0.028) 01/02/20 21:47 Serum Total Protein 8.3 g/dL (6.0-8.3) 01/02/20 21:47 Albumin 5.4 g/dL (3.5-5.0) H 01/02/20 21:47 Lipase 15 U/L (8-78) 01/02/20 21:47 Urine Ketones Greater than 150 mg/dL (Negative) A 01/02/20 22:40 Urine Blood Negative (Negative) 01/02/20 22:40 Urine Nitrite Negative (Negative) 01/02/20 22:40 Ur Leukocyte Esterase Negative Carter/uL (Negative) 01/02/20 22:40 Hospitalist H&P A/P - Plan Plan: 29 year old male with PMH T1DM admitted for: # DKA # leukocytosis # cocaine abuse - admit to IMCU - DKA protocol - recommend cocaine cessation - no obvious sign of infection, continue to monitor # GENARO - likely due to dehydration, trend BMP and IVF # hyperkalemia - likely due to DKA, continue protocol and trend
[2020-01-02] MEDS ORDERED: CCU ELECTROLYTE REPLACEMENT PROTOCOL FS PRN (23:49)
[2020-01-02] MEDS ORDERED: PHOS-NAK 1 PKT PACK PO PRN ×2 (23:49)
[2020-01-02] MEDS ORDERED: Potassium Phosphate 12 MMOL in Sodium Chloride 0.9% 250 ML 250 ML IV PRN (23:49)
[2020-01-02] MEDS ORDERED: Potassium Phosphate 15 MMOL in Sodium Chloride 0.9% 250 ML 250 ML IV PRN (23:49)
[2020-01-02] MEDS ORDERED: Magnesium 2 GM/50 ML 2 GM in Premix Bag 1 BAG IVPB PRN (23:49)
[2020-01-02] MEDS ORDERED: Magnesium Oxide 400 MG TAB PO PRN ×2 (23:49)
[2020-01-02] MEDS ORDERED: Potassium Chloride 40 MEQ in Sodium Chloride 0.9% 250 ML 250 ML IVPB PRN (23:49)
[2020-01-02] MEDS ORDERED: Potassium Chloride 40 MEQ in Premix Bag 1 BAG IVPB PRN (23:49)
[2020-01-02] MEDS ORDERED: Potassium Phosphate 9 MMOL in Sodium Chloride 0.9% 100 ML IVPB PRN (23:49)
[2020-01-02] MEDS ORDERED: Potassium Chloride 20 MEQ TAB PO PRN (23:49)
[2020-01-03 00:24] LABS: Anion Gap 27 mmol/L (10-20); BUN (Urea Nitrogen) 25 mg/dL (8.9-20.6); Calc. Creatinine Clearance 0 mL/min (70-130); Carbon Dioxide 13 mmol/L (22-29); Chloride 103 mmol/L (98-107); Estimated GFR-MDRD 65; Glucose 286 mg/dL (70-105); Potassium 4.5 mmol/L (3.5-5.1); Sodium 138 mmol/L (136-145)
[2020-01-03] MEDS: D5 1/2 NS w/20 mEq KCL 1,000 ML IV PRN ×2 (02:36→06:41)
[2020-01-03 04:06] LABS: #Lymphocytes 1.5 thou/uL (1.20-3.40); #Monocytes 0.8 thou/uL (0.11-0.59); #Neutrophils 11.6 thou/uL (1.40-6.50); %Basophils 0.3 % (0.0-1.0); %Eosinophils 0.2 % (0.0-10.0); %Lymphocytes 10.8 % (21.0-51.0); %Neutrophils 82.7 % (42.0-75.0); Hemoglobin 15.3 g/dL (14.0-18.0); Mean Corpuscular HGB CONC 35.1 g/dL (32.0-36.0); Mean Corpuscular Hemoglobin 33.3 pg (27.0-31.0); Mean Corpuscular Volume 94.9 fL (78.0-98.0); Mean Platelet Volume 11.5 fL (7.4-10.4); Platelet Count 209 thou/uL (130-400); RBC Distribution Width 11.9 % (11.5-14.5); Red Blood Cell (RBC) Count 4.59 mill/uL (4.70-6.10); White Blood Cell (WBC) Count 14.1 thou/uL (4.8-10.8)
[2020-01-03 04:18] LABS: Anion Gap 18 mmol/L (10-20); BUN (Urea Nitrogen) 22 mg/dL (8.9-20.6); Calc. Creatinine Clearance 0 mL/min (70-130); Calcium 8.4 mg/dL (7.8-10.44); Carbon Dioxide 19 mmol/L (22-29); Chloride 105 mmol/L (98-107); Estimated GFR-MDRD 82; Glucose 145 mg/dL (70-105); Magnesium 2.2 mg/dL (1.6-2.6); Potassium 4.3 mmol/L (3.5-5.1); Sodium 138 mmol/L (136-145)
[2020-01-03 05:09] VITALS: BMI 22.9
[2020-01-03 07:00] LABS: Anion Gap 16 mmol/L (10-20); BUN (Urea Nitrogen) 20 mg/dL (8.9-20.6); Calc. Creatinine Clearance 89 mL/min (70-130); Calcium 8.4 mg/dL (7.8-10.44); Carbon Dioxide 21 mmol/L (22-29); Chloride 104 mmol/L (98-107); Estimated GFR-MDRD 78; Glucose 243 mg/dL (70-105); Potassium 4.6 mmol/L (3.5-5.1); Sodium 136 mmol/L (136-145)
[2020-01-03 07:11] LABS: Anion Gap 15 mmol/L (10-20); BUN (Urea Nitrogen) 19 mg/dL (8.9-20.6); Calc. Creatinine Clearance 89 mL/min (70-130); Calcium 8.5 mg/dL (7.8-10.44); Carbon Dioxide 20 mmol/L (22-29); Chloride 104 mmol/L (98-107); Estimated GFR-MDRD 78; Glucose 239 mg/dL (70-105); Potassium 4.6 mmol/L (3.5-5.1); Sodium 134 mmol/L (136-145)
[2020-01-03] MEDS ORDERED: Polyethylene Glycol 3350 17 GM Packet PO SCH (09:00)
[2020-01-03] MEDS: HumuLIN 70/30 (300 UNITS/3 ML VIAL) SC SCH ×2 (09:18→17:42)
[2020-01-03] MEDS ORDERED: HumuLIN 70/30 (300 UNITS/3 ML VIAL) SC SCH (12:30)
[2020-01-03 15:26] VITALS: TEMP 97.6
[2020-01-03 17:10] LABS: Anion Gap 14 mmol/L (10-20); BUN (Urea Nitrogen) 19 mg/dL (8.9-20.6); Calc. Creatinine Clearance 83 mL/min (70-130); Calcium 8.4 mg/dL (7.8-10.44); Carbon Dioxide 23 mmol/L (22-29); Chloride 105 mmol/L (98-107); Estimated GFR-MDRD 72; Glucose 183 mg/dL (70-105); Sodium 138 mmol/L (136-145)
--- NOTE | 2020-01-04 00:46 | DIS ---
DATE OF ADMISSION: 01/02/2020 DATE OF DISCHARGE: 01/03/2020 DISCHARGE DIAGNOSES: As of the followin. Vomiting. 2. Diabetic ketoacidosis. 3. Type 1 diabetic. 4. Acute kidney injury. HOSPITAL COURSE: The patient is a 29-year-old male who initially presented to the hospital after using cocaine and drank alcohol. He started having significant amount of nausea, vomiting, and generalized malaise. He vomited about 5 or 6 times. At this time, he was found to have a glucose of greater than 500. His gap was 32. He had elevated beta hydroxybutyric acid. He was put on insulin drip. His gap closed. He was given his regular home insulin and he was able to tolerate his meal without any difficulties. He also had some acute kidney injury. His kidney injury resolved. His creatinine now is 1.19. It was 1.69 earlier. The patient at this time will be discharged home. He will follow up with his primary. I have advised him against alcohol and drug use. Also, I have recommended to start him on lisinopril for renal protection. It is going to be a small dose of 5 mg. HOME MEDICATIONS: 1. Lisinopril 5 mg daily. 2. Humulin 70/30, 10-15 units as needed and Novolin 70/30, 20 units twice daily. PHYSICAL EXAMINATION: VITAL SIGNS: On discharge are temperature 97.6, 62, 106/62, 100% on room air. GENERAL: He is awake, alert, oriented x3, and does not appear in distress. CV: S1, S2 present. No murmurs, rubs, or gallops. ABDOMEN: Soft and nontender. Bowel sounds are present x2. He will be discharged home. He will follow up with his primary and again I have told him to be careful and not drink alcohol and not do drugs. Job ID: [id number]
[2020-01-05 16:45] LABS: CO2 Tension (PvCO2) 33.2 mmHg (40.0-50.0)
[2020-01-05 16:46] LABS: Base Excess-Venous -12.3 mmol/L (-2.0 to 3.0); Chloride 103 mmol/L (98-107); Hemoglobin - Calc 16.9 g/dL (14.0-18.0); Potassium 5.1 mmol/L (3.5-5.1); Sodium 130 mmol/L (138-145); vO2 Saturation-calc 95.4 % (60.0-85.0)
[2020-01-05 16:47] LABS: Calcium, Ionized 1.03 mmol/L (See Comments:)
== END 2020-01-03 18:02 | disposition home or self-care (01) | DRG 638 ==
LOC: ERS 21:38 → IMCU/EMU 23:02
PROVIDERS: ADMIT Internal Medicine; ATTEND Internal Medicine
DX: E10.10 Type 1 diabetes mellitus with ketoacidosis without coma (principal); N17.9 Acute kidney failure, unspecified; F14.10 Cocaine abuse, uncomplicated; F12.10 Cannabis abuse, uncomplicated; D72.829 Elevated white blood cell count, unspecified; E87.5 Hyperkalemia; E86.0 Dehydration; F17.210 Nicotine dependence, cigarettes, uncomplicated; Z98.42 Cataract extraction status, left eye; Z98.41 Cataract extraction status, right eye; Z79.4 Long term (current) use of insulin
CPT/HCPCS: 36415; 36416; 71045; 80048; 80053; 81003; 82010; 82330; 82435; 82803; 83690; 83735; 84132; 84295; 84484; 85014; 85025; 93005; J1815; J2405; J3480; J3490

== ENCOUNTER 2020-06-26 09:01 | Emergency (ER) | payer SELFPAY ==
[2020-06-26] MEDS ORDERED: Ondansetron PF 4 MG/2 ML Vial ONE ×2 (09:23→10:05)
[2020-06-26 09:46] LABS: Hemoglobin 16.5 g/dL (14.0-18.0); Mean Corpuscular HGB CONC 34.3 g/dL (32.0-36.0); Mean Corpuscular Hemoglobin 31.6 pg (27.0-31.0); Mean Corpuscular Volume 92.3 fL (78.0-98.0); Mean Platelet Volume 10.9 fL (7.4-10.4); Platelet Count 178 thou/uL (130-400); RBC Distribution Width 11.7 % (11.5-14.5); Red Blood Cell (RBC) Count 5.22 mill/uL (4.70-6.10); White Blood Cell (WBC) Count 14.8 thou/uL (4.8-10.8)
[2020-06-26 09:50] LABS: Base Excess-Venous 1.8 mmol/L (-2.0 to 3.0); Bicarbonate (HCO3v) 25.7 mmol/L (22.0-28.0); CO2 Tension (PvCO2) 37.3 mmHg (40.0-50.0); Calcium, Ionized 1.04 mmol/L (1.15-1.33); Chloride 104 mmol/L (98-107); Potassium 4.1 mmol/L (3.5-5.1); Sodium 138 mmol/L (138-145); T. Carbon Dioxide 26.8 mmol/L (22.0-28.0); vO2 Saturation-calc 99.4 % (60.0-85.0)
[2020-06-26 10:01] LABS: ALT (SGPT) 18 U/L (8-55); AST (SGOT) 18 U/L (5-34); Albumin 4.4 g/dL (3.5-5.0); Alkaline Phosphatase 150 U/L (40-110); Anion Gap 18 mmol/L (10-20); BUN (Urea Nitrogen) 8 mg/dL (8.9-20.6); Bilirubin, Total 0.3 mg/dL (0.2-1.2); Calc. Creatinine Clearance 0 mL/min (70-130); Carbon Dioxide 22 mmol/L (22-29); Chloride 101 mmol/L (98-107); Estimated GFR-MDRD Greater than 90; Globulin 2.6 g/dL (2.4-3.5); Glucose 311 mg/dL (70-105); Lipase 130 U/L (8-78); Potassium 4.2 mmol/L (3.5-5.1); Sodium 137 mmol/L (136-145)
[2020-06-26] MEDS ORDERED: Ketorolac Tromethamine 30 MG/ML VIAL ONE (10:05)
[2020-06-26 10:16] LABS: Band 8 % (5-11); Large Platelets SLIGHT; Lymphocytes 6 % (21-51); MDiff Complete? YES; Monocytes 7 % (0-10); Neutrophil 76 % (42-75); Platelet Morphology Comment Appears Adequate; Reactive Lymphocytes 3 % (0-10); Vacuoles SLIGHT
[2020-06-26 11:39] LABS: Bilirubin Negative (Negative); Blood, Urine Negative (Negative); Clarity Clear (Clear); Glucose, Urine (Dipstick) Greater than 1000 mg/dL (Negative); Ketone, Urine 10 mg/dL (Negative); Leukocyte Negative Leu/uL (Negative); Nitrite Negative (Negative); Protein, Urine (Dipstick) 20 mg/dL (Neg-Trace); Urobilinogen Normal mg/dL (Less than 2)
== END 2020-06-26 12:56 | disposition home or self-care (01) ==
LOC: ERS 09:01
DX: K85.90 Acute pancreatitis without necrosis or infection, unspecified (principal); E10.9 Type 1 diabetes mellitus without complications; F17.200 Nicotine dependence, unspecified, uncomplicated
CPT/HCPCS: 36416; 80053; 81003; 82010; 82330; 82803; 83690; 84484; 85025; 93005; 96361; 96374; 96375; 96376; J1885; J2405

== ENCOUNTER 2022-04-03 17:08 | Emergency (ER) | payer SELFPAY ==
[2022-04-03] MEDS ORDERED: Ondansetron ODT 4 MG TAB ONE (17:42)
[2022-04-03 17:53] LABS: #Monocytes 0.4 thou/uL (0.11-0.59); #Neutrophils 12.2 thou/uL (1.40-6.50); %Basophils 0.1 % (0.0-1.0); %Lymphocytes 7.6 % (21.0-51.0); %Monocytes 2.7 % (0.0-10.0); %Neutrophils 89.6 % (42.0-75.0); Hemoglobin 17.7 g/dL (14.0-18.0); Mean Corpuscular HGB CONC 34.7 g/dL (32.0-36.0); Mean Corpuscular Hemoglobin 32.1 pg (27.0-31.0); Mean Corpuscular Volume 92.5 fL (78.0-98.0); Mean Platelet Volume 10.8 fL (7.4-10.4); Platelet Count 256 thou/uL (130-400); Red Blood Cell (RBC) Count 5.53 mill/uL (4.70-6.10); White Blood Cell (WBC) Count 13.6 thou/uL (4.8-10.8)
[2022-04-03 18:17] LABS: ALT (SGPT) 18 U/L (8-55); AST (SGOT) 13 U/L (5-34); Alkaline Phosphatase 118 U/L (40-110); Anion Gap 19 mmol/L (10-20); BUN (Urea Nitrogen) 8 mg/dL (8.9-20.6); Bilirubin, Total 0.7 mg/dL (0.2-1.2); Calc. Creatinine Clearance 0 mL/min (70-130); Calcium 10.3 mg/dL (7.8-10.44); Carbon Dioxide 24 mmol/L (22-29); Chloride 105 mmol/L (98-107); Estimated GFR 97; Glucose 104 mg/dL (70-105); Lipase 8 U/L (8-78); Potassium 3.7 mmol/L (3.5-5.1); Sodium 144 mmol/L (136-145)
[2022-04-03 18:32] LABS: Bilirubin Negative (Negative); Blood, Urine Negative (Negative); Clarity Clear (Clear); Glucose, Urine (Dipstick) Greater than 1000 mg/dL (Negative); Ketone, Urine Negative (Negative); Leukocyte Negative Leu/uL (Negative); Nitrite Negative (Negative); Protein, Urine (Dipstick) 70 mg/dL (Neg-Trace); Specific Gravity, Urine 1.015 (1.002-1.036); Squamous Epithelial None Seen HPF (0-3); Urobilinogen Normal mg/dL (Less than 2); pH, Urine 6.5 (5.0-9.0)
[2022-04-03 18:33] LABS: Bacteria/HPF None Seen HPF (None Seen); RBC/HPF None Seen HPF (0-3); Sperm/HPF Rare HPF (None Seen); WBC/HPF 0-3 HPF (0-3)
[2022-04-03] MEDS ORDERED: Promethazine 25 MG TAB ONE ×2 (18:54→18:56)
== END 2022-04-03 20:30 | disposition home or self-care (01) ==
LOC: ERS 17:08
DX: E86.0 Dehydration (principal); R11.2 Nausea with vomiting, unspecified; Z79.4 Long term (current) use of insulin; E10.9 Type 1 diabetes mellitus without complications
CPT/HCPCS: 36415; 80053; 81003; 81015; 83690; 85025; 99284; Q0162; Q0169

== ENCOUNTER 2022-05-30 02:04 | Emergency (ER) | payer SELFPAY ==
[2022-05-30] MEDS ORDERED: Lidocaine 1% MPF 2 ML VIAL ONE (02:36)
[2022-05-30] MEDS ORDERED: Bupivacaine 0.25% 10 ML VIAL ONE (02:36)
== END 2022-05-30 03:09 | disposition home or self-care (01) ==
LOC: ERS 02:04
DX: K02.9 Dental caries, unspecified (principal); E10.9 Type 1 diabetes mellitus without complications
CPT/HCPCS: 64400; S0020

== ENCOUNTER 2022-06-24 08:34 | Emergency (ER) | payer SELFPAY | END 2022-06-24 11:36 | disposition left against medical advice (07) | LOC: ERS 08:34 | DX: Z53.21 Procedure and treatment not carried out due to patient leaving prior to being seen by health care provider (principal) | CPT/HCPCS: 36416 ==

== ENCOUNTER 2022-08-10 22:11 | Emergency (ER) | payer SELFPAY ==
[2022-08-10] MEDS ORDERED: Ondansetron PF 4 MG/2 ML Vial ONE (22:36)
[2022-08-10 22:56] LABS: Hemoglobin 17.9 g/dL (14.0-18.0); Mean Corpuscular HGB CONC 34.5 g/dL (32.0-36.0); Mean Corpuscular Hemoglobin 32.5 pg (27.0-31.0); Mean Corpuscular Volume 94.2 fl (78.0-98.0); Mean Platelet Volume 11.4 fL (7.4-10.4); Platelet Count 204 10x3/uL (130-400); Red Blood Cell (RBC) Count 5.52 mill/uL (4.70-6.10); White Blood Cell (WBC) Count 17.3 10x3/uL (4.8-10.8)
[2022-08-10] MEDS ORDERED: Mag-Al 1200 mg/1200 mg/30 ML UDCUP ONE (22:57)
[2022-08-10] MEDS ORDERED: Lidocaine Viscous Sol 2% 15 ml UD Cup ONE (22:57)
[2022-08-10 23:16] LABS: ALT (SGPT) 10 U/L (8-55); AST (SGOT) 12 U/L (5-34); Albumin 4.5 g/dL (3.5-5.0); Alkaline Phosphatase 122 U/L (40-110); Anion Gap 14 mmol/L (10-20); BUN (Urea Nitrogen) 11 mg/dL (8.9-20.6); Band 9 % (5-11); Bilirubin, Total 1.1 mg/dL (0.2-1.2); Calc. Creatinine Clearance 0 mL/min (70-130); Calcium 9.6 mg/dL (7.8-10.44); Carbon Dioxide 28 mmol/L (22-29); Chloride 102 mmol/L (98-107); Estimated GFR 75; Globulin 2.8 g/dL (2.4-3.5); Glucose 244 mg/dL (70-105); Lipase 52 U/L (8-78); Lymphocytes 1 % (21-51); MDiff Complete? YES; Monocytes 1 % (0-10); Neutrophil 89 % (42-75); Potassium 4.1 mmol/L (3.5-5.1); Protein, Total 7.3 g/dL (6.0-8.3); Sodium 140 mmol/L (136-145)
[2022-08-11 00:21] LABS: Bacteria/HPF None Seen HPF (None Seen); Bilirubin Negative (Negative); Blood, Urine Negative (Negative); Clarity Clear (Clear); Glucose, Urine (Dipstick) Greater than 1000 mg/dL (Negative); Ketone, Urine 10 mg/dL (Negative); Leukocyte Negative Leu/uL (Negative); Nitrite Negative (Negative); Protein, Urine (Dipstick) 50 mg/dL (Neg-Trace); RBC/HPF None Seen HPF (0-3); Specific Gravity, Urine 1.016 (1.002-1.036); Squamous Epithelial 0-3 HPF (0-3); Urobilinogen Normal mg/dL (Less than 2); WBC/HPF 0-3 HPF (0-3)
== END 2022-08-11 00:15 | disposition home or self-care (01) ==
LOC: ERS 22:11
DX: R10.13 Epigastric pain (principal); E10.9 Type 1 diabetes mellitus without complications; B34.9 Viral infection, unspecified; D72.829 Elevated white blood cell count, unspecified
CPT/HCPCS: 71045; 80053; 81003; 81015; 83690; 85025; 94760; 96374; J2405

== ENCOUNTER 2022-10-11 08:05 | Emergency (ER) | payer SELFPAY ==
[2022-10-11] MEDS ORDERED: Ketorolac Tromethamine 30 MG/ML VIAL ONE (08:40)
[2022-10-11] MEDS ORDERED: Metoclopramide HCl 10 MG/2 ML VIAL ONE (08:40)
[2022-10-11 09:06] LABS: #Eosinphils 0.1 thou/uL (0.0-0.7); #Lymphocytes 1.8 thou/uL (1.20-3.40); #Monocytes 0.4 thou/uL (0.11-0.59); #Neutrophils 6.3 thou/uL (1.40-6.50); %Basophils 0.6 % (0.0-1.0); %Eosinophils 0.8 % (0.0-10.0); %Lymphocytes 20.4 % (21.0-51.0); %Monocytes 4.7 % (0.0-10.0); %Neutrophils 73.5 % (42.0-75.0); Hemoglobin 15.9 g/dL (14.0-18.0); Mean Corpuscular HGB CONC 34.1 g/dL (32.0-36.0); Mean Corpuscular Volume 93.9 fl (78.0-98.0); Mean Platelet Volume 11.1 fL (7.4-10.4); Platelet Count 215 10x3/uL (130-400); RBC Distribution Width 11.7 % (11.5-14.5); Red Blood Cell (RBC) Count 4.97 mill/uL (4.70-6.10); White Blood Cell (WBC) Count 8.6 10x3/uL (4.8-10.8)
[2022-10-11 09:30] LABS: Magnesium 1.7 mg/dL (1.6-2.6); Phosphorus 2.5 mg/dL (2.3-4.7)
[2022-10-11 09:32] LABS: ALT (SGPT) 12 U/L (8-55); AST (SGOT) 11 U/L (5-34); Albumin 3.8 g/dL (3.5-5.0); Alkaline Phosphatase 109 U/L (40-110); Anion Gap 16 mmol/L (10-20); BUN (Urea Nitrogen) 10 mg/dL (8.9-20.6); Bilirubin, Total 0.4 mg/dL (0.2-1.2); Calc. Creatinine Clearance 0 mL/min (70-130); Calcium 8.9 mg/dL (7.8-10.44); Carbon Dioxide 26 mmol/L (22-29); Chloride 101 mmol/L (98-107); Estimated GFR 69; Globulin 2.5 g/dL (2.4-3.5); Glucose 289 mg/dL (70-105); Lipase 54 U/L (8-78); Potassium 3.7 mmol/L (3.5-5.1); Protein, Total 6.3 g/dL (6.0-8.3); Sodium 139 mmol/L (136-145)
[2022-10-11 10:02] LABS: Bacteria/HPF None Seen HPF (None Seen); Bilirubin Negative (Negative); Blood, Urine Negative (Negative); Clarity Clear (Clear); Glucose, Urine (Dipstick) Greater than 1000 mg/dL (Negative); Ketone, Urine 150 mg/dL (Negative); Leukocyte 25 Leu/uL (Negative); Nitrite Negative (Negative); Protein, Urine (Dipstick) Negative (Neg-Trace); RBC/HPF None Seen HPF (0-3); Specific Gravity, Urine 1.026 (1.002-1.036); Squamous Epithelial None Seen HPF (0-3); Urobilinogen Normal mg/dL (Less than 2); WBC/HPF 0-3 HPF (0-3); pH, Urine 5.5 (5.0-9.0)
[2022-10-11 10:21] LABS: Actual Bicarbonate (HCO3v) 28 mEq/L (22-28); Base Excess 1.4 mEq/L (-2.0 to +3.0); Calcium, Ionized (venous) 1.11 mmol/L (1.16-1.32); Chloride (VBG) 101 mmol/L (98-106); Hemoglobin (Hb) 15.3 g/dL (13.2-17.3); Potassium (VBG) 3.55 mmol/L (3.70-5.30); Sodium 138.6 mmol/L (133-146); pH (venous) 7.34 (7.32-7.43)
== END 2022-10-11 11:43 | disposition home or self-care (01) ==
LOC: ERS 08:05
DX: E10.65 Type 1 diabetes mellitus with hyperglycemia (principal); Z79.4 Long term (current) use of insulin
CPT/HCPCS: 36415; 36416; 80053; 81003; 81015; 82010; 82805; 83690; 83735; 84100; 85025; 96361; 96365; 96375; J1885; J2765

== ENCOUNTER 2022-10-23 08:15 | Day surgery (SDC) | payer OTHER ==
[2022-10-22 12:58] VITALS: BMI 24.2
[~2022-10-23 08:15] MED LIST: EPINEPHrine 0.3 MG in Ophthalmic Irrigation Solution 500 ML IRR SCH
[2022-10-23] MEDS ORDERED: Phenylephrine 2.5% Ophth Soln 5 ML BOT ONE (08:59)
[2022-10-23] MEDS ORDERED: Cyclopentolate 1% Opth Drop 2 ML BOT ONE (08:59)
[2022-10-23] MEDS ORDERED: FENTANYL 50 MCG/ML 1 ML VIAL ONE (09:31)
[2022-10-23] MEDS ORDERED: Midazolam HCl 2 mg/2 ml Vial ONE ×2 (09:31→10:24)
[2022-10-23] MEDS ORDERED: Dexamethasone 20 MG/5 ML VIAL ONE (10:28)
[2022-10-23] MEDS ORDERED: Triamcinolone 40 MG/ML VIAL ONE (10:28)
[2022-10-23] MEDS ORDERED: Maxitrol 0.1% Opth Oint 3.5 GM TUBE ONE (10:28)
[2022-10-23] MEDS ORDERED: Lidocaine 4% PF 5 ML AMP ONE (10:28)
[2022-10-23] MEDS ORDERED: Bupivacaine 0.75% 10 ML VIAL ONE (10:28)
[2022-10-23] MEDS ORDERED: PROPOFOL 200 MG/20 ML VIAL ONE (10:28)
[2022-10-23] MEDS ORDERED: Ondansetron PF 4 MG/2 ML Vial ONE (10:28)
[2022-10-23] MEDS ORDERED: Labetalol HCl 100 MG/20 ML VIAL ONE (12:06)
== END 2022-10-23 12:22 | disposition home or self-care (01) ==
LOC: SDC 08:15
PROVIDERS: ATTEND Ophthalmology Retina Specialist
PROC: 08T53ZZ Resection of Left Vitreous, Percutaneous Approach (ICD-10-PCS; principal; 2022-10-23)
PROC: 08QF3ZZ Repair Left Retina, Percutaneous Approach (ICD-10-PCS; principal; 2022-10-23)
DX: H43.12 Vitreous hemorrhage, left eye (principal); H33.42 Traction detachment of retina, left eye; Z79.4 Long term (current) use of insulin; Z88.0 Allergy status to penicillin
CPT/HCPCS: 36416; J0171; J1100; J2250; J2405; J2704; J3010; J3301; J3490

== ENCOUNTER 2023-02-20 17:06 | Emergency (ER) | payer OTHER ==
[2023-02-20] MEDS ORDERED: diphenhydrAMINE 50 MG/ML VIAL ONE (17:23)
[2023-02-20] MEDS ORDERED: Metoclopramide HCl 10 MG/2 ML VIAL ONE (17:23)
[2023-02-20 17:31] LABS: #Basophils 0.1 thou/uL (0.0-0.2); #Eosinphils 0.1 thou/uL (0.0-0.7); #Monocytes 0.6 thou/uL (0.11-0.59); #Neutrophils 10.1 thou/uL (1.40-6.50); %Basophils 0.4 % (0.0-1.0); %Eosinophils 0.9 % (0.0-10.0); %Lymphocytes 11.5 % (21.0-51.0); %Monocytes 4.5 % (0.0-10.0); %Neutrophils 82.5 % (42.0-75.0); Mean Corpuscular HGB CONC 34.7 g/dL (32.0-36.0); Mean Corpuscular Hemoglobin 31.2 pg (27.0-31.0); Mean Corpuscular Volume 89.9 fl (78.0-98.0); Platelet Count 231 10x3/uL (130-400); RBC Distribution Width 11.8 % (11.5-14.5); Red Blood Cell (RBC) Count 5.45 mill/uL (4.70-6.10); White Blood Cell (WBC) Count 12.2 10x3/uL (4.8-10.8)
[2023-02-20 17:52] LABS: ALT (SGPT) 24 U/L (8-55); AST (SGOT) 15 U/L (5-34); Albumin 4.7 g/dL (3.5-5.0); Alkaline Phosphatase 116 U/L (40-110); Anion Gap 11 mmol/L (10-20); BUN (Urea Nitrogen) 16 mg/dL (8.9-20.6); Bilirubin, Total 0.4 mg/dL (0.2-1.2); Calc. Creatinine Clearance 0 mL/min (70-130); Calcium 9.7 mg/dL (7.8-10.44); Carbon Dioxide 32 mmol/L (22-29); Chloride 100 mmol/L (98-107); Estimated GFR 79; Globulin 2.6 g/dL (2.4-3.5); Glucose 210 mg/dL (70-105); Lipase 39 U/L (8-78); Magnesium 1.7 mg/dL (1.6-2.6); Protein, Total 7.3 g/dL (6.0-8.3); Sodium 139 mmol/L (136-145)
== END 2023-02-20 18:50 | disposition home or self-care (01) ==
LOC: ERS 17:06
DX: R51.9 Headache, unspecified (principal); R11.2 Nausea with vomiting, unspecified; E10.9 Type 1 diabetes mellitus without complications; Z79.4 Long term (current) use of insulin
CPT/HCPCS: 71045; 80053; 83690; 83735; 84484; 85025; 93005; 96365; 96375; J1200; J2765

== ENCOUNTER 2023-03-05 17:32 | Observation (INO) | payer OTHER ==
[2023-03-05 18:10] LABS: #Basophils 0.1 thou/uL (0.0-0.2); #Monocytes 0.5 thou/uL (0.11-0.59); #Neutrophils 15.2 thou/uL (1.40-6.50); %Basophils 0.4 % (0.0-1.0); %Lymphocytes 5.6 % (21.0-51.0); %Monocytes 2.7 % (0.0-10.0); %Neutrophils 91.1 % (42.0-75.0); Hematocrit 54.5 % (42.0-52.0); Hemoglobin 19.8 g/dL (14.0-18.0); Mean Corpuscular HGB CONC 36.3 g/dL (32.0-36.0); Mean Corpuscular Hemoglobin 31.2 pg (27.0-31.0); Mean Corpuscular Volume 85.8 fl (78.0-98.0); Mean Platelet Volume 13.4 fL (7.4-10.4); Platelet Count 280 10x3/uL (130-400); RBC Distribution Width 11.7 % (11.5-14.5); Red Blood Cell (RBC) Count 6.35 mill/uL (4.70-6.10); White Blood Cell (WBC) Count 16.7 10x3/uL (4.8-10.8)
[2023-03-05] MEDS ORDERED: Ondansetron PF 4 MG/2 ML Vial ONE (18:35)
[2023-03-05 18:40] LABS: ALT (SGPT) 27 U/L (8-55); AST (SGOT) 16 U/L (5-34); Albumin 5.5 g/dL (3.5-5.0); Alkaline Phosphatase 160 U/L (40-110); Anion Gap 22 mmol/L (10-20); BUN (Urea Nitrogen) 30 mg/dL (8.9-20.6); Bilirubin, Total 0.9 mg/dL (0.2-1.2); CK (CPK) 142 U/L (30-200); Calc. Creatinine Clearance 0 mL/min (70-130); Calcium 11.4 mg/dL (7.8-10.44); Carbon Dioxide 18 mmol/L (22-29); Chloride 96 mmol/L (98-107); Estimated GFR 23; Glucose 360 mg/dL (70-105); Lipase 9 U/L (8-78); Protein, Total 9.5 g/dL (6.0-8.3); Sodium 131 mmol/L (136-145)
[2023-03-05 19:08] LABS: Actual Bicarbonate (HCO3v) 18.1 mEq/L (22-28); Base Excess -6.2 mEq/L (-2.0 to +3.0); Calcium, Ionized (venous) 1.07 mmol/L (1.16-1.32); Chloride (VBG) 97 mmol/L (98-106); Hematocrit-VBG 56 % (42.0-52.0); Hemoglobin (Hb) 19.2 g/dL (13.2-17.3); Potassium (VBG) 5.99 mmol/L (3.70-5.30); Sodium 131.3 mmol/L (133-146)
[2023-03-05 21:35] LABS: Bacteria/HPF None Seen HPF (None Seen); Bilirubin Negative (Negative); Blood, Urine 1+ (Negative); CAUTI Indications for Culture Pelvic or flank pain; Calcium Oxalate Crystals 1+ HPF (None Seen); Clarity Turbid (Clear); Glucose, Urine (Dipstick) Greater than 1000 mg/dL (Negative); Ketone, Urine 20 mg/dL (Negative); Leukocyte 25 Leu/uL (Negative); Nitrite Negative (Negative); Protein, Urine (Dipstick) 70 mg/dL (Neg-Trace); Specific Gravity, Urine 1.018 (1.002-1.036); Squamous Epithelial 0-3 HPF (0-3); Transitional Epithelial 0-3 HPF (None Seen); Urobilinogen Normal mg/dL (Less than 2)
[2023-03-05 21:37] LABS: Urine Culture Reflex No No
[2023-03-05 22:54] LABS: Anion Gap 18 mmol/L (10-20); BUN (Urea Nitrogen) 30 mg/dL (8.9-20.6); Calc. Creatinine Clearance 0 mL/min (70-130); Calcium 9.5 mg/dL (7.8-10.44); Carbon Dioxide 20 mmol/L (22-29); Chloride 100 mmol/L (98-107); Estimated GFR 38; Glucose 283 mg/dL (70-105); Potassium 5.3 mmol/L (3.5-5.1); Sodium 133 mmol/L (136-145)
[2023-03-05] MEDS ORDERED: Insulin Regular 300 UNITS/3 ML VIAL ONE (23:34)
[2023-03-05] MEDS ORDERED: CALCIUM GLUC 1 GM/NS 50 ML BAG ONE (23:34)
[2023-03-06] MEDS ORDERED: Dextrose 5% in Water 1,000 ML IV PRN (00:34)
[2023-03-06] MEDS ORDERED: Acetaminophen 325 MG TAB PO PRN (00:34)
[2023-03-06] MEDS ORDERED: Glucagon 1 MG/ML KIT IM PRN (00:34)
[2023-03-06] MEDS ORDERED: HumaLOG 300 UNITS/3 ML VIAL SC PRN ×4 (00:34→01:43)
[2023-03-06] MEDS ORDERED: Ondansetron ODT 4 MG TAB PO PRN (00:34)
[2023-03-06] MEDS ORDERED: Ondansetron PF 4 MG/2 ML Vial IVP PRN (00:34)
[2023-03-06] MEDS ORDERED: Dextrose 50% Abboject 50 ML SYRINGE SLOW IVP PRN (00:34)
[2023-03-06] MEDS ORDERED: Sodium Bicarb 50 MEQ/50 ML VIAL IVP SCH (00:45)
[2023-03-06] MEDS ORDERED: Famotidine 20 MG TAB PO SCH ×2 (01:30→09:00)
[2023-03-06] MEDS ORDERED: Insulin Regular 300 UNITS/3 ML VIAL SC PRN ×2 (01:46)
[2023-03-06] MEDS: Sodium Chloride 0.9% 1,000 ML IV SCH ×2 (02:11→09:44)
[2023-03-06 02:35] VITALS: BMI 25.3
[2023-03-06] MEDS ORDERED: LevoFLOXacin 500 mg/D5W 500 MG in Premix Bag 1 BAG IVPB SCH (03:00)
[2023-03-06 03:19] LABS: Bilirubin Negative (Negative); Blood, Urine Negative (Negative); Clarity Clear (Clear); Glucose, Urine (Dipstick) 50 mg/dL (Negative); Ketone, Urine 20 mg/dL (Negative); Leukocyte Negative Leu/uL (Negative); Nitrite Negative (Negative); Protein, Urine (Dipstick) 20 mg/dL (Neg-Trace); Specific Gravity, Urine 1.018 (1.002-1.036); Urobilinogen Normal mg/dL (Less than 2)
[2023-03-06 07:05] LABS: #Eosinphils 0.1 thou/uL (0.0-0.7); #Monocytes 0.9 thou/uL (0.11-0.59); #Neutrophils 7.4 thou/uL (1.40-6.50); %Basophils 0.3 % (0.0-1.0); %Eosinophils 0.5 % (0.0-10.0); %Lymphocytes 19.7 % (21.0-51.0); %Monocytes 8.8 % (0.0-10.0); %Neutrophils 70.5 % (42.0-75.0); Hematocrit 46.1 % (42.0-52.0); Mean Corpuscular Hemoglobin 31.7 pg (27.0-31.0); Mean Platelet Volume 13.1 fL (7.4-10.4); Platelet Count 223 10x3/uL (130-400); RBC Distribution Width 11.8 % (11.5-14.5); Red Blood Cell (RBC) Count 5.24 mill/uL (4.70-6.10); White Blood Cell (WBC) Count 10.5 10x3/uL (4.8-10.8)
[2023-03-06 07:11] LABS: Hemoglobin A1c 8.9 % (4.0-6.0)
[2023-03-06 07:20] LABS: Hemoglobin 16.6 g/dL (14.0-18.0)
[2023-03-06] MEDS ORDERED: HumuLIN 70/30 100 Unit/ ml 10 ml Vial SC SCH (07:30)
[2023-03-06 07:31] LABS: Anion Gap 14 mmol/L (10-20); BUN (Urea Nitrogen) 27 mg/dL (8.9-20.6); Calc. Creatinine Clearance 66 mL/min (70-130); Calcium 9.4 mg/dL (7.8-10.44); Carbon Dioxide 24 mmol/L (22-29); Chloride 102 mmol/L (98-107); Estimated GFR 58; Glucose 70 mg/dL (70-105); Potassium 3.7 mmol/L (3.5-5.1); Sodium 136 mmol/L (136-145)
[2023-03-06 12:08] VITALS: BP 133/81; TEMP 97.8
== END 2023-03-06 14:10 | disposition home or self-care (01) ==
LOC: ERS 17:32 → T4-B 23:22
PROVIDERS: ADMIT Student in an Organized Health Care Education/Training Program; ATTEND Student in an Organized Health Care Education/Training Program
DX: R11.10 Vomiting, unspecified (principal); K21.9 Gastro-esophageal reflux disease without esophagitis; E86.0 Dehydration; N17.9 Acute kidney failure, unspecified; E10.65 Type 1 diabetes mellitus with hyperglycemia; D72.829 Elevated white blood cell count, unspecified; F12.90 Cannabis use, unspecified, uncomplicated; Z98.41 Cataract extraction status, right eye; Z98.42 Cataract extraction status, left eye; Z88.0 Allergy status to penicillin; Z79.4 Long term (current) use of insulin; Z79.899 Other long term (current) drug therapy
CPT/HCPCS: 36415; 36416; 80048; 80053; 81001; 81003; 82010; 82550; 82805; 83036; 83690; 85025; 93005; 96361; 96365; 96375; G0378; J0613; J1815; J1956; J2405; J7050

== ENCOUNTER 2023-07-09 22:52 | Emergency (ER) | payer OTHER, SELFPAY ==
[2023-07-09] MEDS ORDERED: Morphine 4 MG/ML VIAL ONE (23:34)
[2023-07-09] MEDS ORDERED: Ondansetron PF 4 MG/2 ML Vial ONE (23:34)
[2023-07-10 00:02] LABS: Bacteria/HPF None Seen HPF (None Seen); Bilirubin Negative (Negative); Blood, Urine Negative (Negative); CAUTI Indications for Culture Pelvic or flank pain; Clarity Clear (Clear); Glucose, Urine (Dipstick) Greater than 1000 mg/dL (Negative); Ketone, Urine 60 mg/dL (Negative); Leukocyte Negative Leu/uL (Negative); Nitrite Negative (Negative); Protein, Urine (Dipstick) Negative (Neg-Trace); RBC/HPF 0-3 HPF (0-3); Specific Gravity, Urine 1.022 (1.002-1.036); Squamous Epithelial 0-3 HPF (0-3); Urobilinogen Normal mg/dL (Less than 2); WBC/HPF 0-3 HPF (0-3)
[2023-07-10 00:10] LABS: Urine Culture Reflex No No
[2023-07-10 00:18] LABS: #Monocytes 0.4 thou/uL (0.11-0.59); #Neutrophils 8.9 thou/uL (1.40-6.50); %Basophils 0.4 % (0.0-1.0); %Eosinophils 0.2 % (0.0-10.0); %Lymphocytes 8.8 % (21.0-51.0); %Monocytes 3.7 % (0.0-10.0); %Neutrophils 86.7 % (42.0-75.0); Hematocrit 45.3 % (42.0-52.0); Hemoglobin 15.8 g/dL (14.0-18.0); Mean Corpuscular HGB CONC 34.9 g/dL (32.0-36.0); Mean Corpuscular Hemoglobin 31.9 pg (27.0-31.0); Mean Corpuscular Volume 91.3 fl (78.0-98.0); Mean Platelet Volume 13.4 fL (7.4-10.4); Platelet Count 257 10x3/uL (130-400); RBC Distribution Width 12.2 % (11.5-14.5); Red Blood Cell (RBC) Count 4.96 mill/uL (4.70-6.10); White Blood Cell (WBC) Count 10.2 10x3/uL (4.8-10.8)
[2023-07-10 00:41] LABS: ALT (SGPT) 20 U/L (8-55); AST (SGOT) 17 U/L (5-34); Albumin 4.2 g/dL (3.5-5.0); Alkaline Phosphatase 130 U/L (40-110); Anion Gap 19 mmol/L (10-20); BUN (Urea Nitrogen) 16 mg/dL (8.9-20.6); Bilirubin, Total 0.6 mg/dL (0.2-1.2); Calc. Creatinine Clearance 0 mL/min (70-130); Calcium 9.4 mg/dL (7.8-10.44); Carbon Dioxide 18 mmol/L (22-29); Chloride 100 mmol/L (98-107); Estimated GFR 72; Glucose 394 mg/dL (70-105); Lipase 10 U/L (8-78); Magnesium 1.8 mg/dL (1.6-2.6); Potassium 4.4 mmol/L (3.5-5.1); Protein, Total 7.2 g/dL (6.0-8.3); Sodium 133 mmol/L (136-145)
[2023-07-10 01:31] LABS: CellaVision Operator ID lab.sh2; Platelet Adequacy Comment Platelets Normal; RBC Morphology Within Normal Limits
[2023-07-10] MEDS ORDERED: Iopamidol-370 76% 500 ML MDV (1 ML CHARGE) ONE (11:36)
== END 2023-07-10 03:02 | disposition home or self-care (01) ==
LOC: ERS 22:52
DX: K52.9 Noninfective gastroenteritis and colitis, unspecified (principal); E10.9 Type 1 diabetes mellitus without complications
CPT/HCPCS: 74177; 80053; 81001; 83690; 83735; 85025; 96361; 96374; 96375; J2270; J2405; Q9967

== ENCOUNTER 2025-03-08 08:32 | Emergency (ER) | payer SELFPAY ==
[2025-03-08 10:33] LABS: #Basophils 0.03 10x3/uL (0.0-0.2); #Eosinophils 0.12 10x3/uL (0.0-0.7); #Monocytes 0.54 10x3/uL (0.11-0.59); #Neutrophils 5.00 10x3/uL (1.40-6.50); %Basophils 0.4 % (0.0-1.0); %Eosinophils 1.7 % (0.0-10.0); %Lymphocytes 17.9 % (21.0-51.0); %Monocytes 7.8 % (0.0-10.0); %Neutrophils 72.1 % (42.0-75.0); Hematocrit 49.2 % (42.0-52.0); Hemoglobin 16.9 g/dL (14.0-18.0); Mean Corpuscular Hemoglobin 30.7 pg (27.0-31.0); Mean Corpuscular Volume 89.3 fL (78.0-98.0); Platelet Count 252 10x3/uL (130-400); Red Blood Cell (RBC) Count 5.51 mill/uL (4.70-6.10); White Blood Cell (WBC) Count 6.94 10x3/uL (4.8-10.8)
[2025-03-08 10:35] LABS: Bacteria/HPF 1+ HPF (None Seen); CAUTI Indications for Culture Pelvic or flank pain; Glucose, Urine (Dipstick) 200 mg/dL (Negative); Leukocyte 25 Leu/uL (Negative); Protein, Urine (Dipstick) 20 mg/dL (Neg-Trace); Specific Gravity, Urine 1.017 (1.002-1.036)
[2025-03-08 10:36] LABS: Urine Culture Reflex No No
[2025-03-08 10:57] LABS: ALT (SGPT) 13 U/L (Less than 45); AST (SGOT) 20 U/L (11-34); Albumin 4.3 g/dL (3.1-4.5); Alkaline Phosphatase 147 U/L (40-110); Anion Gap 13 mmol/L (10-20); BUN (Urea Nitrogen) 27 mg/dL (8.9-20.6); Bilirubin, Total 0.4 mg/dL (0.3-1.2); CK (CPK) 62 U/L (30-200); Calc. Creatinine Clearance 0 mL/min (70-130); Calcium 9.3 mg/dL (7.8-10.44); Carbon Dioxide 31 mmol/L (22-29); Chloride 99 mmol/L (98-107); Globulin 3.4 g/dL (2.4-3.5); Glucose 153 mg/dL (70-105); Potassium 4.6 mmol/L (3.5-5.1); Sodium 138 mmol/L (136-145)
== END 2025-03-08 12:53 | disposition home or self-care (01) ==
LOC: ERS 08:32
DX: N39.0 Urinary tract infection, site not specified (principal); E86.0 Dehydration; E10.9 Type 1 diabetes mellitus without complications; Z79.4 Long term (current) use of insulin; Z87.891 Personal history of nicotine dependence
CPT/HCPCS: 36416; 74176; 80053; 81001; 82550; 85025; 96360

== ENCOUNTER 2025-03-18 13:36 | Emergency (ER) | payer SELFPAY ==
[2025-03-18] MEDS ORDERED: Ondansetron PF 4 MG/2 ML Vial ONE (15:32)
[2025-03-18 16:21] LABS: ALT (SGPT) 35 U/L (Less than 45); AST (SGOT) 41 U/L (11-34); Albumin 4.8 g/dL (3.1-4.5); Alkaline Phosphatase 142 U/L (40-110); Anion Gap 17 mmol/L (10-20); BUN (Urea Nitrogen) 26 mg/dL (8.9-20.6); Bilirubin, Total 0.6 mg/dL (0.3-1.2); CK (CPK) 112 U/L (30-200); Calc. Creatinine Clearance 0 mL/min (70-130); Calcium 10.3 mg/dL (7.8-10.44); Carbon Dioxide 25 mmol/L (22-29); Chloride 101 mmol/L (98-107); Globulin 3.5 g/dL (2.4-3.5); Glucose 89 mg/dL (70-105); Lipase 64 U/L (8-78); Potassium 3.9 mmol/L (3.5-5.1); Sodium 139 mmol/L (136-145)
[2025-03-18 16:30] LABS: #Basophils 0.07 10x3/uL (0.0-0.2); #Eosinophils 0.05 10x3/uL (0.0-0.7); #Monocytes 0.74 10x3/uL (0.11-0.59); #Neutrophils 13.42 10x3/uL (1.40-6.50); %Basophils 0.5 % (0.0-1.0); %Eosinophils 0.3 % (0.0-10.0); %Lymphocytes 7.1 % (21.0-51.0); %Monocytes 4.8 % (0.0-10.0); %Neutrophils 86.9 % (42.0-75.0); Hematocrit 49.6 % (42.0-52.0); Hemoglobin 16.9 g/dL (14.0-18.0); Mean Corpuscular Hemoglobin 30.2 pg (27.0-31.0); Mean Corpuscular Volume 88.7 fL (78.0-98.0); Platelet Count 278 10x3/uL (130-400); Red Blood Cell (RBC) Count 5.59 mill/uL (4.70-6.10); White Blood Cell (WBC) Count 15.44 10x3/uL (4.8-10.8)
[2025-03-18 16:51] LABS: Bacteria/HPF None Seen HPF (None Seen); CAUTI Indications for Culture Dysuria,urgency,freq; Glucose, Urine (Dipstick) 500 mg/dL (Negative); Leukocyte Negative Leu/uL (Negative); Protein, Urine (Dipstick) 50 mg/dL (Neg-Trace); RBC/HPF 0-3 HPF (0-3); Specific Gravity, Urine 1.020 (1.002-1.036); WBC/HPF 0-3 HPF (0-3)
[2025-03-18 16:54] LABS: Urine Culture Reflex No No
== END 2025-03-18 20:29 | disposition home or self-care (01) ==
LOC: ERS 13:36
DX: E86.0 Dehydration (principal); E10.9 Type 1 diabetes mellitus without complications; Z87.891 Personal history of nicotine dependence
CPT/HCPCS: 36416; 80053; 81001; 82550; 83690; 85025; 93005; 96361; 96374; J2405